=== PATIENT | female | born 1985 | race Caucasian/White ===

== ENCOUNTER → 2018-03-25 20:57 | Outpatient (CLI) | payer BC, SELFPAY ==
[2018-03-25 21:21] LABS: Absolute Neutrophil Count 5.5 X10^3/uL (2.0-7.7); Basophil# 0.04 X10^3/uL; Basophil% 0.4 % (0-1); Hematocrit 43.4 % (37-47); Hemoglobin 14.2 g/dl (12.0-15.0); Lymphocyte % 34.4 % (19-41); Mean Corp Hgb Conc 32.7 g/gl (32-36); Mean Corpuscular Hgb 29.3 pg (27.0-32.0); Mean Corpuscular Volume 89.5 fL (81-99); Monocyte# 0.55 X10^3/uL; Monocyte% 5.6 % (0-10); Neutrophil # 5.54 X10^3/uL (2.7-7.7); Neutrophil % 56.2 % (47-70); Platelet Count 245 K/mm3 (150-450); RBC Distribution Width CV 12.8 % (11.6-14.6); RBC Distribution Width SD 41.4 fl (35.1-43.9); Red Blood Count 4.85 M/mm3 (4.2-5.4); White Blood Count 9.9 K/mm3 (4.4-11.0)
[2018-03-25 21:22] LABS: POSITIVE COUNT NO; POSITIVE DIFFERENTIAL NO; POSITIVE MORPHOLOGY NO
[2018-03-25 21:46] LABS: ALB/GLOB Ratio 0.9 RATIO (0.9-2.4); AST(SGOT) 26 U/L (15-37); Alanine Aminotransfer ALT/SGPT 44 U/L (13-56); Albumin, Serum 3.7 g/dL (3.2-5.0); Alkaline Phosphatase 69 U/L (45-117); Anion Gap 9 (5-15); BUN 14 mg/dL (7-18); BUN/Creat Ratio 18.2 RATIO (10-20); Chloride 103 mmol/L (98-107); Cholesterol 206 mg/dL (200); Creatinine, Serum 0.77 mg/dL (0.55-1.02); EST Glomerular Filtration Rate 93 mL/min (>60); Est Glom Filt Rate - Afr Amer 113 mL/min (>60); Glucose 92 mg/dL (74-106); High Density Lipoprotein 44 mg/dL; Protein, Total 7.7 g/dL (6.4-8.2); Sodium Level 140 mmol/L (136-145); Thyroid Stim Hormone (TSH) 6.85 uIU/mL (0.358-3.74); Triglycerides 276 mg/dL; Very Low Density Lipoprotein 55 mg/dL (5-40)
[2018-03-26 09:10] LABS: Vitamin B12 311 pg/mL (211-911)
[2018-03-29 11:18] LABS: EBV Acute VCA IgM < 36.0 U/mL (0.0-35.9); EBV Early Antigen IgG 51.5 U/mL (0.0-8.9); EBV Nuclear Antigen IgG > 600.0 U/mL (0.0-17.9); EBV-VCA IgG > 600.0 U/mL (0.0-17.9); Thyroid Peroxidase AB 23 IU/mL (0-34)
== END ==
PROVIDERS: Visit Provider Nurse Practitioner
DX: B27.90 Infectious mononucleosis, unspecified without complication (principal); I10 Essential (primary) hypertension; E78.00 Pure hypercholesterolemia, unspecified; E03.9 Hypothyroidism, unspecified; R53.83 Other fatigue
CPT/HCPCS: 80053; 80061; 82607; 84439; 84443; 85025; 86376; 86663; 86664; 86665

== ENCOUNTER → 2020-04-26 10:05 | Outpatient (CLI) | payer BC, SELFPAY ==
[2020-04-25 19:38] VITALS: BMI 37.5
[2020-04-26 10:47] LABS: Absolute Lymphocyte Count 3.39 X10^3/uL (0.83-4.51); Absolute Neutrophil Count 11.1 X10^3/uL (2.0-7.7); Basophil# 0.09 X10^3/uL; Basophil% 0.6 % (0-1); Eosinophil# 0.16 X10^3/uL; Hematocrit 45.3 % (37-47); Hemoglobin 14.6 g/dL (12.0-15.0); Lymphocyte # 3.39 X10^3/ul (4.0); Lymphocyte % 21.7 % (19-41); Mean Corp Hgb Conc 32.2 g/dL (32-36); Mean Corpuscular Hgb 28.6 pg (27.0-32.0); Mean Corpuscular Volume 88.6 fL (81-99); Mean Platelet Vol. 10.4 fl (6.2-12.0); Monocyte# 0.82 X10^3/uL; Monocyte% 5.2 % (0-10); NRBC Flagged by Analyzer 0 % (0-5); Neutrophil # 11.09 X10^3/uL (2.7-7.7); Neutrophil % 71.1 % (47-70); Platelet Count 362 K/mm3 (150-450); RBC Distribution Width CV 12.1 % (11.6-14.6); RBC Distribution Width SD 39.4 fl (35.1-43.9); Red Blood Count 5.11 M/mm3 (4.2-5.4); White Blood Count 15.6 K/mm3 (4.4-11.0)
[2020-04-26 11:07] LABS: Thyroid Stim Hormone (TSH) 5.88 uIU/mL (0.358-3.74)
== END ==
PROVIDERS: PCP Nurse Practitioner; Referring Provider Nurse Practitioner; Visit Provider Nurse Practitioner
DX: E03.9 Hypothyroidism, unspecified (principal)
CPT/HCPCS: 84443; 85025

== ENCOUNTER → 2021-04-24 21:19 | Outpatient (CLI) | payer OTHER, SELFPAY ==
[2021-04-24 21:41] LABS: Absolute Lymphocyte Count 4.47 X10^3/uL (0.83-4.51); Absolute Neutrophil Count 7.4 X10^3/uL (2.0-7.7); Basophil# 0.11 X10^3/uL; Basophil% 0.8 % (0-1); Eosinophil# 0.33 X10^3/uL; Eosinophils% 2.5 % (0-5); Lymphocyte # 4.47 X10^3/ul (0.83-4.51); Lymphocyte % 34.3 % (19-41); Mean Corp Hgb Conc 33.3 g/dL (32-36); Mean Corpuscular Hgb 29.5 pg (27.0-32.0); Mean Corpuscular Volume 88.4 fL (81-99); Mean Platelet Vol. 9.7 fl (6.2-12.0); Monocyte# 0.72 X10^3/uL; Monocyte% 5.5 % (0-10); NRBC Flagged by Analyzer 0 % (0-5); Neutrophil # 7.35 X10^3/uL (2.7-7.7); Neutrophil % 56.4 % (47-70); Platelet Count 399 K/mm3 (150-450); RBC Distribution Width CV 12.3 % (11.6-14.6); RBC Distribution Width SD 40.2 fl (35.1-43.9); Red Blood Count 5.09 M/mm3 (4.2-5.4)
[2021-04-24 21:55] LABS: ALB/GLOB Ratio 0.8 RATIO (0.9-2.4); AST(SGOT) 17 U/L (15-37); Alanine Aminotransfer ALT/SGPT 28 U/L (13-56); Albumin, Serum 3.8 g/dL (3.2-5.0); Alkaline Phosphatase 77 U/L (45-117); Anion Gap 6 (5-15); BUN 6 mg/dL (7-18); BUN/Creat Ratio 7.5 RATIO (10-20); Chloride 104 mmol/L (98-107); Cholesterol 169 mg/dL (200); EST Glomerular Filtration Rate 88 mL/min (>60); Est Glom Filt Rate - Afr Amer 106 mL/min (>60); Globulin 4.5 g/dL (2.2-4.2); Glucose 93 mg/dL (74-106); High Density Lipoprotein 49 mg/dL; Potassium 3.7 mmol/L (3.5-5.1); Protein, Total 8.3 g/dL (6.4-8.2); Sodium Level 138 mmol/L (136-145); Thyroid Stim Hormone (TSH) 2.45 uIU/mL (0.358-3.74); Triglycerides 209 mg/dL; Very Low Density Lipoprotein 42 mg/dL (5-40)
== END ==
PROVIDERS: PCP Nurse Practitioner; Visit Provider Nurse Practitioner
DX: Z00.00 Encounter for general adult medical examination without abnormal findings (principal)
CPT/HCPCS: 80053; 80061; 84443; 85025

== ENCOUNTER → 2022-04-22 | Outpatient (CLI) | payer OTHER, SELFPAY ==
[2022-04-22 22:30] LABS: Absolute Lymphocyte Count 3.97 X10^3/uL (0.83-4.51); Absolute Neutrophil Count 6.5 X10^3/uL (2.0-7.7); Basophil# 0.06 X10^3/uL; Basophil% 0.5 % (0-1); Eosinophil# 0.47 X10^3/uL; Hematocrit 41.9 % (37-47); Lymphocyte # 3.97 X10^3/ul (0.83-4.51); Lymphocyte % 33.5 % (19-41); Mean Corp Hgb Conc 33.4 g/dL (32-36); Mean Corpuscular Hgb 29.6 pg (27.0-32.0); Mean Corpuscular Volume 88.6 fL (81-99); Mean Platelet Vol. 10.1 fl (6.2-12.0); Monocyte# 0.79 X10^3/uL; Monocyte% 6.7 % (0-10); NRBC Flagged by Analyzer 0 % (0-5); Neutrophil # 6.53 X10^3/uL (2.7-7.7); Platelet Count 350 K/mm3 (150-450); RBC Distribution Width CV 12.3 % (11.6-14.6); RBC Distribution Width SD 40.2 fl (35.1-43.9); Red Blood Count 4.73 M/mm3 (4.2-5.4); White Blood Count 11.9 K/mm3 (4.4-11.0)
[2022-04-22 23:00] LABS: ALB/GLOB Ratio 0.8 RATIO (0.9-2.4); AST(SGOT) 14 U/L (15-37); Alanine Aminotransfer ALT/SGPT 24 U/L (13-56); Albumin, Serum 3.3 g/dL (3.2-5.0); Alkaline Phosphatase 69 U/L (45-117); Anion Gap 7 (5-15); BUN 15 mg/dL (7-18); BUN/Creat Ratio 19.1 RATIO (10-20); Calcium,Total 8.7 mg/dL (8.5-10.1); Chloride 108 mmol/L (98-107); Cholesterol 161 mg/dL (200); Creatinine, Serum 0.79 mg/dL (0.55-1.02); EST Glomerular Filtration Rate 89 mL/min (>60); Est Glom Filt Rate - Afr Amer 107 mL/min (>60); Globulin 4.1 g/dL (2.2-4.2); Glucose 95 mg/dL (74-106); High Density Lipoprotein 42 mg/dL; Potassium 4.1 mmol/L (3.5-5.1); Protein, Total 7.4 g/dL (6.4-8.2); Sodium Level 141 mmol/L (136-145); Triglycerides 175 mg/dL; Very Low Density Lipoprotein 35 mg/dL (5-40)
[2022-04-25 13:57] LABS: Vitamin D 1,25-Dihydroxy 33.1 pg/mL (24.8-81.5)
== END | disposition home or self-care (01) ==
PROVIDERS: PCP Nurse Practitioner; Visit Provider Nurse Practitioner
DX: Z00.00 Encounter for general adult medical examination without abnormal findings (principal)
CPT/HCPCS: 80053; 80061; 82652; 84443; 85025

== ENCOUNTER → 2022-09-09 | Outpatient (CLI) | payer OTHER, SELFPAY ==
[2022-09-09 22:46] LABS: AST(SGOT) 21 U/L (15-37); Alanine Aminotransfer ALT/SGPT 40 U/L (13-56); Alkaline Phosphatase 81 U/L (45-117); Anion Gap 8 (5-15); BUN 10 mg/dL (7-18); Calcium,Total 9.6 mg/dL (8.5-10.1); Chloride 105 mmol/L (98-107); Creatinine, Serum 0.91 mg/dL (0.55-1.02); EST Glomerular Filtration Rate 75 mL/min (>60); Est Glom Filt Rate - Afr Amer 90 mL/min (>60); Globulin 4.2 g/dL (2.2-4.2); Glucose 94 mg/dL (74-106); Protein, Total 8.2 g/dL (6.4-8.2); Sodium Level 141 mmol/L (136-145); Thyroid Stim Hormone (TSH) 4.76 uIU/mL (0.358-3.74)
[2022-09-09 23:11] LABS: Absolute Lymphocyte Count 3.26 X10^3/uL (0.83-4.51); Absolute Neutrophil Count 7.8 X10^3/uL (2.0-7.7); Basophil# 0.05 X10^3/uL; Basophil% 0.4 % (0-1); Eosinophil# 0.39 X10^3/uL; Eosinophils% 3.2 % (0-5); Hematocrit 45.9 % (37-47); Hemoglobin 14.8 g/dL (12.0-15.0); Lymphocyte # 3.26 X10^3/ul (0.83-4.51); Lymphocyte % 26.4 % (19-41); Mean Corp Hgb Conc 32.2 g/dL (32-36); Mean Corpuscular Hgb 28.2 pg (27.0-32.0); Mean Corpuscular Volume 87.4 fL (81-99); Mean Platelet Vol. 10.2 fl (6.2-12.0); Monocyte# 0.76 X10^3/uL; Monocyte% 6.2 % (0-10); NRBC Flagged by Analyzer 0 % (0-5); Neutrophil # 7.77 X10^3/uL (2.7-7.7); Neutrophil % 62.9 % (47-70); Platelet Count 343 K/mm3 (150-450); RBC Distribution Width CV 12.7 % (11.6-14.6); RBC Distribution Width SD 40.5 fl (35.1-43.9); Red Blood Count 5.25 M/mm3 (4.2-5.4); White Blood Count 12.3 K/mm3 (4.4-11.0)
== END | disposition home or self-care (01) ==
PROVIDERS: PCP Nurse Practitioner; Visit Provider Nurse Practitioner
DX: E03.9 Hypothyroidism, unspecified (principal)
CPT/HCPCS: 80053; 84443; 85025

== ENCOUNTER → 2025-01-16 | Outpatient (CLI) | payer OTHER, SELFPAY ==
--- OUTSIDE RECORDS SUMMARY | 2025-01-17 02:27 | XMS RPT_ITS | CCD ---
Author Organization [facility] Care Team Providers Care Flavoring Maker Name Role Phone Kalani Pace Primary Care Provider Kwan CLOTH FINISHER, Nacho Attending Unavailable Kwan CLOTH FINISHER, Nacho Primary Care Unavailable Kwan CLOTH FINISHER, Nacho Attending Unavailable Kawn CLOTH FINISHER, Nacho Primary Care Unavailable Nacho Cameron Primary Care Provider RAZA MONIQUE Attending Unavailable NACHO CAMERON Primary Care Unavailable Nacho Cameron Primary Care Provider Allergies Allergy Classification Reported Allergen(s) Allergy Type Date of Onset Reaction(s) Facility Sulfonamides (antibiotic) (1 source) Sulfonamides (Antibiotic) Drug Allergy 2 GI Upset, Vomiting [facility] (2 sources) Sulfonamides (Antibiotic) Allergy to substance 8 [facility] (1 source) Sulfonamides (Antibiotic) Drug allergy (disorder) 8 [facility] (4 sources) Sulfonamides (Antibiotic) Propensity to adverse reactions 8 Nausea And Vomiting [facility] Medications Current Medications Medication Drug Class(es) Dates Sig (Normalized) Sig (Original) ciprofloxacin 500 mg oral tablet (2 sources) Quinolone Antimicrobial Start: 09-09-2022 take 500 mg by mouth twice daily Ciprofloxacin Hcl Active 500 MG PO TWICE A DAY September 09, 2022 12:00am Start: 06-27-2022 End: 07-01-2022 take 500 mg by mouth twice daily Ciprofloxacin Hcl Discontinued 500 MG PO TWICE A DAY June 27, 2022 12:00am July 01, 2022 11:52am FLUoxetine 40 mg oral capsule (3 sources) Serotonin Reuptake Inhibitor Start: 04-22-2022 End: 06-27-2022 take 40 mg by mouth once daily Fluoxetine Active 40 MG PO DAILY June 27, 2022 4:42pm hydrOXYzine hydrochloride 10 mg oral tablet (1 source) Antihistamine Start: 10-30-2023 take 1 tablet by mouth three times daily as needed for anxiety hydrOXYzine HCl (Atarax) 10 MG tablet Take 10 mg by mouth 3 times daily as needed for anxiety. 0 10/30/2023 Active levonorgestrel 0.213697 mg/hr intrauterine system (1 source) Progestin, Progestin-containin g Intrauterine Device levonorgestrel (Mirena, 52 MG,) 20 MCG/DAY IUD 1 each by IntraUTERine route Once. 0 Active levothyroxine sodium 0.2 mg oral tablet (17 sources) l-Thyroxine Start: 04-18-2023 take 1 tablet by mouth once daily levothyroxine (Synthroid, Levoxyl) 200 MCG tablet Take 200 mcg by mouth daily. 0 04/18/2023 Active Start: 09-10-2022 take 200 ug by mouth once daily Levothyroxine Active 200 MCG PO DAILY September 10, 2022 12:00am Start: 04-25-2022 End: 09-10-2022 take 175 ug by mouth once daily Levothyroxine Discontinued 175 MCG PO DAILY June 27, 2022 4:42pm September 10, 2022 8:07am Start: 03-02-2019 End: 06-27-2022 take 150 ug by mouth once daily Levothyroxine Discontinued 150 MCG PO DAILY April 25, 2021 7:22pm June 27, 2022 4:41pm Start: 03-30-2018 End: 05-29-2018 Levothyroxine Discontinued 1 75 MCG PO DAILY March 30, 2018 1:48pm May 28, 2018 11:11pm Take on empty stomach, one half hour prior to food or supplements Start: 03-23-2018 End: 03-30-2018 take 150 ug by mouth once daily Levothyroxine Discontinued 150 MCG PO DAILY March 22, 2018 11:00pm March 30, 2018 1:47pm lisdexamfetamine dimesylate 20 mg oral capsule (3 sources) Central Nervous System Stimulant Start: 01-17-2021 End: 02-01-2021 take 1 capsule by mouth once daily at breakfast lisdexamfetamine (VYVANSE) 20 mg capsule Indications: ADHD (attention deficit hyperactivity disorder), inattentive type Take 1 capsule by mouth daily with breakfast for 15 days. 15 capsule 0 01/17/2021 02/01/2021 Active Start: 03-02-2019 End: 04-22-2022 take 1 capsule by mouth once daily Lisdexamfetamine (Vyvanse) 70 mg capsule Discontinued 70 MG PO DAILY March 01, 2019 11:00pm April 22, 2022 3:00pm Comment on above: Take 1 capsule by mo [facility] daily with breakfast for 15 days. pantoprazole 40 mg delayed release oral tablet (4 sources) Proton Pump Inhibitor Start: take 40 mg by mouth once daily Pantoprazole Active 40 MG PO DAILY September 09, 2022 12:00am Start: 08-31-2022 End: 08-31-2022 pantoprazole (ProtoNix) inje ction 40 mg Completed/Discontinued Medications Medication Drug Class(es) Dates Sig (Normalized) Sig (Original) amoxicillin 875 mg / clavulanate 125 mg oral tablet (3 sources) Penicillin-class Antibacterial Start: 07-01-2022 End: 09-09-2022 take 1 tablet by mouth twice daily Amoxicillin-Pot Clavulanate Discontinued 1 TABLET PO TWICE A DAY July 01, 2022 12:00am September 09, 2022 6:05pm Start: 02-13-2021 End: 04-22-2022 take 1 tablet by mouth twice daily Amoxicillin-Pot Clavulanate Discontinued 1 TABLET PO TWICE A DAY February 12, 2021 11:00pm April 22, 2022 3:00pm 24 hr amphetamine 15.7 mg extended release oral tablet (2 sources) Central Nervous System Stimulant Start: 04-22-2022 End: 06-27-2022 take 1 tablet by mouth every twenty-four hours Amphetamine (Adzenys Xr-Odt) 15.7 mg tablet,disinteg ER biphase 24h Discontinued MG PO April 21, 2022 11:00pm June 27, 2022 4:41pm azithromycin 250 mg oral tablet (2 sources) Macrolide Antimicrobial Start: 10-22-2020 End: 10-27-2020 Azithromycin Discontinued 250 MG PO daily 6 October 21, 2020 11:00pm October 26, 2020 11:03pm 2 po qd for 1 day then 1 po qd for 4 days with food or after eating cephalexin 500 mg oral capsule (2 sources) Cephalosporin Antibacterial Start: 04-26-2020 End: 05-06-2020 take 500 mg by mouth twice daily Cephalexin Discontinued 500 MG PO TWICE A DAY 15 05April 25, 2020 11:00pm May 05, 2020 11:03pm cholecalciferol 0.05 mg oral capsule (1 source) Vitamin D Cholecalciferol, Vitamin D3, (VITAMIN D-3) 2,000 unit cap Take by mouth once daily. 0 Active Comment on above: Take by mouth once d aily. citalopram 40 mg oral tablet (2 sources) Serotonin Reuptake Inhibitor Start: 03-23-2018 End: 03-25-2018 take 40 mg by mouth once daily Citalopram Discontinued 40 MG PO DAILY March 22, 2018 11:00pm March 25, 2018 9:47am 24 hr desvenlafaxine succinate 50 mg extended release oral tablet (1 source) Serotonin and Norepinephrine Reuptake Inhibitor Start: 10-12-2023 End: 11-11-2023 take 1 tablet by mouth every twenty-four hours desvenlafaxine (Pristiq) 50 MG 24 hr tablet Take 50 mg by mouth. 0 10/12/2023 11/11/2023 Discontinued () fluconazole 150 mg oral tablet (2 sources) Azole Antifungal Start: 03-23-2018 End: 03-25-2018 Fluconazole Discontinued 150 MG PO Q3D March 22, 2018 11:00pm March 25, 2018 9:47am 1 ml haloperidol 5 mg/ml injection (2 sources) Typical Antipsychotic Start: 08-31-2022 End: 08-31-2022 haloperidol lactate (Haldol) injection 2.5 mg hydroCHLOROthiazide 25 mg oral tablet (2 sources) Thiazide Diuretic Start: 03-23-2018 End: 03-25-2018 take 25 mg by mouth once daily Hydrochlorothiazide Discontinued 25 MG PO DAILY March 22, 2018 11:00pm March 25, 2018 9:48am methylPREDNISolone (1 source) Corticosteroid METHYLPREDNISOLO NE ACETATE (DEPO-MEDROL INJECTION) by INJECTION(UNSPECIFIED PARENTERAL ROUTES) route. Every three months 0 Active Comment on above: by INJECTION(UNSPECI FIED PARENTERAL ROUTES) route. Every three months metroNIDAZOLE 0.0075 mg/mg vaginal gel (2 sources) Nitroimidazole Antimicrobial Start: 10-04-2020 End: 06-27-2022 Metronidazole Discontinued 1 APPFUL VAGINAL DAILY 70 October 04, 2020 12:00am June 27, 2022 4:41pm Multivitamin capsule (1 source) take 1 capsule by mouth once daily Multivitamin capsule Take 1 capsule by mouth once daily. 0 Active Comment on above: Take 1 capsule by mo ut once daily. 2 ml ondansetron 2 mg/ml injection (5 sources) Serotonin-3 Receptor Antagonist Start: 08-31-2022 End: 08-31-2022 ondansetron (Zofran) injection 4 mg Start: 08-31-2022 End: 09-07-2022 take 1 tablet by mouth every eight hours as needed for nausea and vomiting ondansetron ODT (Zofran-ODT) 4 MG disintegrating tablet Take 1 tablet (4 mg) by mouth every 8 hours as needed for nausea or vomiting for up to 7 days. 20 tablet 0 08/31/2022 09/07/2022 Active Start: 07-02-2022 take 8 mg by mouth e very eight hours Ondansetron Active 8 MG PO Q8H July 02, 2022 12:00am PNV NO.28/FERROUS FUMARATE/FA (PNV #28-IRON FUMARATE-FOLIC AC ORAL) (1 source) PNV NO.28/FERROU S FUMARATE/FA (PNV #28-IRON FUMARATE-FOLIC AC ORAL) Take by mouth. 0 Active Comment on above: Take by mouth. predniSONE 10 mg oral tablet (8 sources) Start: 02-13-2021 End: 02-17-2021 Prednisone Discontinued 20 MG PO TWICE A DAY 23 11February 12, 2021 11:00pm February 16, 2021 11:01pm 2 po bid 4D,1 po bid for 4 D, 1 po qd for 4 D 1/2 po qd for 2 days Start: 10-22-2020 End: 11-05-2020 take 40 mg by mouth once daily Prednisone Discontinued 40 MG PO DAILY 15 05October 26, 2020 5:31pm November 04, 2020 11:03pm Start: 04-25-2020 End: 10-04-2020 take 40 mg by mouth once daily Prednisone Discontinued 40 MG PO DAILY April 24, 2020 11:00pm October 04, 2020 5:02pm 50 ml sodium chloride 9 mg/ml injection (2 sources) Start: 08-31-2022 End: 08-31-2022 sodium chloride 0.9 % bolus 1,000 mL spironolactone 50 mg oral tablet (1 source) Aldosterone Antagonist take 1 tablet by mouth twice daily spironolactone (ALDACTONE) 50 mg tablet Take 50 mg by mouth twice daily. 0 Active Comment on above: Take 50 mg by mouth twice daily. topiramate 50 mg oral tablet (1 source) take 1 tablet by mouth twice daily Topiramate (TOPAMAX) 50 mg tablet Take 50 mg by mouth twice daily. 0 Active Comment on above: Take 50 mg by mouth twice daily. 24 hr venlafaxine 75 mg extended release oral capsule (20 sources) Serotonin and Norepinephrine Reuptake Inhibitor Start: 12-28-2020 venlafaxine ER (EFFEXOR XR) 75 mg 24 hr capsule Start: 04-14-2019 End: 04-26-2020 take 225 mg by mouth once daily Venlafaxine Discontinu ed 225 MG PO DAILY 180 30 April 25, 2020 6:45pm April 26, 2020 11:08am Start: 03-07-2019 End: 04-22-2022 take 225 mg by mouth once daily Venlafaxine Discontinu ed 225 MG PO DAILY 270 90 April 14, 2019 4:45pm April 25, 2020 6:46pm Start: 03-02-2019 End: 03-07-2019 take 225 mg by mouth once daily Venlafaxine Discontinu ed 225 MG PO DAILY 90 March 02, 2019 6:07pm March 07, 2019 1:53pm Start: 03-25-2018 End: 03-02-2019 take 150 mg by mouth once daily Venlafaxine Discontinu ed 150 MG PO DAILY March 25, 2018 9:48am March 02, 2019 6:07pm Start: 03-23-2018 End: 03-25-2018 take 225 mg by mouth once daily Venlafaxine Discontinu ed 225 MG PO DAILY March 22, 2018 11:00pm March 25, 2018 9:48am take 1 tablet by adina th once daily venlafaxine 37.5 mg tablet Take 37.5 mg by mouth once daily. 0 Active Comment on above: Take 37.5 mg by mout h once daily. vitamin b6 100 mg oral tablet (1 source) take 1 tablet by mouth once daily pyridoxine (VITAMIN B-6) 100 mg tablet Take 100 mg by mouth once daily. 0 Active Comment on above: Take 100 mg by mouth once daily. Problems Active Problems Problem Classification Problem Date Documented Da te Episodic/Chronic Anxiety disorders (4 sources) Anxiety; Translations: [Anxiety disorder, unspecified] Onset: 5 05-10-2022 Chronic Attention-deficit, conduct, and disruptive behavior disorders (2 sources) Attention deficit hyperactivity disorder, predominantly inattentive type; Translations: [Attention-deficit hyperactivity disorder, predominantly inattentive type] Onset: Chronic Bacterial infection; unspecified site (2 sources) Beta lactam resistant bacterial infection; Translations: [Streptococcal infection, unspecified site] 10-24-2020 Episodic Esophageal disorders (1 source) Gastroesophageal reflux disease; Translations: [Gastro-esophageal reflux disease without esophagitis] 09-09-2022 Chronic Inflammatory diseases of female pelvic organs (2 sources) Bacterial vaginosis; Translations: [Acute vaginitis] 10-04-2020 Episodic Malaise and fatigue (1 source) Fatigue; Translations: [Chronic fatigue, unspecified] Chronic Mood disorders (6 sources) Depressive disorder; Translations: [Depression] Onset: 5 03-02-2019 Chronic Other endocrine disorders (1 source) Hyperprolactinemia; Translations: [Hyperprolactinemia] Onset: 2 06-09-2012 Chronic Other gastrointestinal disorders (2 sources) Dysphagia; Translations: [Dysphagia, unspecified] 10-26-2020 Episodic Other nutritional; endocrine; and metabolic disorders (2 sources) Obesity caused by energy imbalance; Translations: [Other obesity due to excess calories] Onset: 6 05-10-2022 Chronic Other nutritional; endocrine; and metabolic disorders (4 sources) Body mass index 30+ - obesity; Translations: [Body mass index (BMI) 36.0-36.9, adult] Onset: 9 05-10-2022 Chronic Other nutritional; endocrine; and metabolic disorders (2 sources) Simple obesity ; Translations: [Other obesity due to excess calories] Onset: 6 05-10-2022 Chronic Other screening for suspected conditions (not mental disorders or infectious disease) (4 sources) Thyroid function tests abnormal; Translations: [Abnormal results of thyroid function studies] Onset: 3 08-25-2012 Episodic Other skin disorders (2 sources) Sebaceous cyst of skin; Translations: [Sebaceous cyst] 10-04-2020 Episodic Other upper respiratory disease (2 sources) Seasonal allergy; Translations: [Other seasonal allergic rhinitis] 04-22-2022 Chronic Other upper respiratory infections (4 sources) Streptococcal sore throat; Translations: [Streptococcal pharyngitis] 06-27-2022 Episodic Poisoning by nonmedicinal substances (2 sources) Bee sting; Translations: [Toxic effect of venom of bees, accidental (unintentional), initial encounter] 04-25-2020 Episodic Skin and subcutaneous tissue infections (4 sources) Erysipelas; Translations: [Erysipelas] 02-13-2021 Episodic Superficial injury; contusion (2 sources) Nonvenomous insect bite of face with infection; Translations: [Insect bite (nonvenomous) of other part of head, initial encounter] 02-14-2021 Episodic Thyroid disorders (9 sources) Goiter; Translations: [Iodine-deficiency related diffuse (endemic) goiter] Onset: 6 03-02-2019 Chronic Past or Other Problems Problem Classification Problem Date Documented Da te Episodic/Chronic Malaise and fatigue (1 source) Fatigue; Translations: [Other fatigue] Onset: 02-20-2012 02-20-2012 Episodic Nausea and vomiting (2 sources) Nausea and vomiting; Translations: [Nausea with vomiting, unspecified] Episodic Other gastrointestinal disorders (2 sources) Diarrhea; Translations: [Diarrhea, unspecified] Episodic Other skin disorders (1 source) Telogen effluvium; Translations: [Telogen effluvium] Onset: 02-20-2012 02-20-2012 Episodic Unclassified (2 sources) LEEP CERVIX 02-24-2022 Unclassified (2 sources) mirena removed 02-24-2022 Results Test Name Value Interpretation Reference Range Facility Office Visiton 12-30-2023 Follow-up visit [id number] Beth Heard 1985 F Date Provider Department Center 12/30/2023 RAZA CASH [facility] Family History Problem Relation Age of Onset Thyroid disease Paternal Grandfather Comments: hypothyroid Diabetes Paternal Grandfather Breast cancer Paternal Grandmother 70 Thyroid disease Maternal Grandmother Comments: Parathyroid Alcohol abuse Maternal Grandfather Liver disease Maternal Grandfather Other Father Comments: MVA 31 years old Substance Abuse Mother Comments: alcohol No Known Problems Brother No Known Problems Brother Depression Sister Breast cancer Paternal Great-Grandmother 68 Ovarian cancer Neg Hx Cervical cancer Neg Hx Family Status - Relation Status Age at Paternal Grandfather Alive Paternal Grandmother Alive Maternal Grandmother Alive Maternal Grandfather Father Mother Alive Brother Alive Brother Alive Sister Alive Paternal Great-Grandmother Alive Neg Hx Level of Service:[id number] [place] INITIAL PREVENTIVE MEDICINE NEW PT AGE 18-39YRS Reason for Visit and Comments: Annual Exam [83] - Well woman- replace Mirena Last pap-5 years ago, +HPV, cryotherapy [facility] Progress Noteon 12-30-2023 Progress Note Leslie Heard 12/30/[birth year]23 38 y.o. Primary Care Physician: NACHO CAMERON Chief Complaint Patient presents with Annual Exam Well woman- replace Mirena Last pap-5 years ago, +HPV, cryotherapy HPI : Leslie Heard is a 38 y.o. female here for annual exam __ Gynecologic History: Patient's last menstrual period was 12/28/2023. Pt without complaints. Had mirena placed 5 years ago. Light periods on mirena. OB History Para Term AB Living 0 0 0 0 0 0 SAB IAB Ectopic Multiple Live Births 0 0 0 0 0 Past Medical History: Diagnosis Date Anxiety BMI 36.0-36.9,adult 08/09/2018 Depression EBV infection 2018 Headache HPV (human papilloma virus) anogenital infection Hypothyroidism Past Surgical History: Procedure Laterality Date CERVIX LESION DESTRUCTION 2006 cryo therapy HYSTEROSCOPY 2017 Lost intrauterine device INTRAUTERINE DEVICE INSERTION Removed 2017 Family History Problem Relation Name Age of Onset Thyroid disease Paternal Grandfather hypothyroid Diabetes Paternal Grandfather Breast cancer Paternal Grandmother 70 Thyroid disease Maternal Grandmother Parathyroid Alcohol abuse Maternal Grandfather Liver disease Maternal Grandfather Other ([id number]) Father MVA 31 years old Substance Abuse Mother alcohol No Known Problems Brother No Known Problems Brother Depression Sister Breast cancer Paternal Great-Grandmother great aunt 68 Ovarian cancer Neg Hx Cervical cancer Neg Hx Social History Socioeconomic History Marital status: Single Spouse name: Not on file Number of children: Not on file Years of education: Not on file Highest education level: Not on file Occupational History Not on file Tobacco Use Smoking status: Never Smokeless tobacco: Never Substance and Sexual Activity Alcohol use: Yes Alcohol/week: 0.0 standard drinks of alcohol Drug use: No Sexual activity: Not on file Other Topics Concern Not on file Social History Narrative Not on file Social Determinants of Health Financial Resource Strain: Not on file Food Insecurity: Not on file Transportation Needs: Not on file Physical Activity: Not on file Stress: Not on file Social Connections: Not on file Intimate Partner Violence: Not on file Housing Stability: Not on file MEDICATIONS: Current Outpatient Medications Medication Sig Dispense Refill hydrOXYzine HCl (Atarax) 10 MG tablet Take 10 mg by mouth 3 times daily as needed for anxiety. levonorgestrel (Mirena, 52 MG,) 20 MCG/DAY IUD 1 each by IntraUTERine route Once. levothyroxine (Synthroid, Levoxyl) 200 MCG tablet Take 200 mcg by mouth daily. pantoprazole (ProtoNix) 40 MG EC tablet Take 40 mg by mouth daily. No current facility-administered medications for this visit. ALLERGIES: Allergies as of 12/30/2023 - Reviewed 12/30/2023 Allergen Reaction Noted Sulfa antibiotics Nausea And Vomiting 03/23/2018 REVIEW OF SYSTEMS: CONSTIUTIONAL: No fever, chills or malaise; No weight change or fatigue CV: No Chest Pain with Exertion, Palpitations, Syncope, Edema, Arrhythmia RESPIRATORY: No SOB, Pneumoniae,Cough, BREAST: No breast abnormalities or lumps GI: No Indigestion, Heartburn, Nausea, vomiting, Diarrhea, Constipation,Bloating or Bowel Changes; No Bloody Stools or melena : No Dysuria, Hematuria or Nocturia. No Urinary Incontinence or Vaginal Discharge,vaginal bleeding, or dysparuenia. NEURO: No CVA, Migraines, Epilepsy, Seizure Hx, or Limb Weakness DERM: No Rash, Itching, Hives, Mole Changes or Cancer PSYCH: No Depression, Homicidal thoughts,suicidal thoughts, or anxiety MUSCULOSKELETAL: No Arthralgia, or Arthritis HEME and LYMPH :No Lymphoma, Von Willebrand's, Hemophillia or Bleeding History PHYSICAL EXAM: Vitals: 12/30/23 1159 BP: 124/86 Weight: 104 kg (230 lb) Height: 1.702 m (5' 7) Body mass index is 36.02 kg/m?. KINESEOLOGIST EXAM: EXTERNAL GENITALIA: normal female structures VAGINA: normal ruggae, no lesions CERVIX: no lesions, normal appearance. ANUS/PERINEUM: no hemorrhoids, masses or warts noted. GENERAL EXAM BREAST: b/l symmetric without masses or tenderness CONSTITUTIONAL: Well developed, well nourished, well groomed. no acute distress NECK: no thyromegaly, supple. CARDIOVASCULAR: normal rate and rhythm, no edema LUNGS: Normal effort, normal lung sounds ABDOMEN:soft, non-tender, non-distended, no hepatospleenomegaly SKIN: intact, dry NEUROLOGICAL: no gross motor or sensory deficits noted. . MUSCULOSKELETAL: normal gait, no cyanosis. PSYCHIATRIC Normal mood and affect, A&O x3. ASSESSMENT/PLAN: Leslie was seen today for annual exam. Diagnoses and all orders for this visit: Well woman exam with routine gynecological exam (Primary) - Pap Smear Cervical cancer screening - Pap Smear Follow up in about 1 year (around 12/29/2024). IUD stings not seen Had imaging (more content not included)... Normal [facility] Progress Note [facility] Bailiff was negra peres to the patient for exam. Patient accepted, medical record specialist in room during exam Normal [facility] Progress Note Normal, no endocervi richa cells, repeat pap 1 year [facility] 36on 11-13-2023 36 Name of Caller: Osmin Heard Contact Reason for Appointment: LM for pt to return call to schedule appt. Pt has Mirena implant that needs removed/replaced. Former Dr Patel pt. Office Name: [facility] Medication Refills need, if any: n/a Medication Name: n/a [facility] 36 Appointment Request From: Leslie Heard With Provider: Other - (see comments) Preferred Date Range: From 11/13/2023 To 11/20/2023 Preferred Times: Any Reason: To address the following health maintenance concerns. Cervical Cancer Screening Comments: Past due for my cervical screening and I believe I am past due to having my control removed. I currently have the Mirina implant. Normal [facility] CBC W/Diff, Automatedon 02-1 Absolute Lymph 3.26 X10 3/uL Normal 0.83-4.51 [facility] Comment on above: Performed By: #### L 500.4050, [id number], L100.0100 #### [facility] [address] [place], [address] Absolute Neut 7.8 X10 3/uL High 2.0-7.7 [facility] Comment on above: Performed By: #### L 500.4050, [id number], L100.0100 #### [facility] [address] [place], [address] Basophils/100 WBC (Bld) 0.4 % Normal 0-1 [facility] Comment on above: Performed By: #### L 500.4050, [id number], L100.0100 #### [facility] [address] [place], [address] Eosinophils/100 WBC (Bld) 3.2 % Normal 0-5 [facility] Comment on above: Performed By: #### L 500.4050, [id number], L100.0100 #### [facility] [address] [place], [address] Erythrocyte distribution width (RBC) [Ratio] 12.7 % Normal 11.6-14.6 [facility] Comment on above: Performed By: #### L 500.4050, [id number], L100.0100 #### [facility] [address] [place], [address] Hematocrit (Bld) [Volume fraction] 45.9 % Normal 37-47 [facility] Comment on above: Performed By: #### L 500.4050, [id number], L100.0100 #### [facility] [address] [place], [address] Hemoglobin (Bld) [Mass/Vol] 14.8 g/dL Normal 12.0-15.0 [facility] Comment on above: Performed By: #### L 500.4050, [id number], L100.0100 #### [facility] [address] [place], [address] IG% 0.900 Normal 0.0-0.9 [facility] Comment on above: Result Comment: IG% - Immature Granulocytes (promyelocytes, myelocytes and metamyelocytes) > 1% indicates that a LEFT SHIFT is Present. Performed By: #### L 500.4050, [id number], L100.0100 #### [facility] [address] [place], [address] Lymphocytes/100 WBC (Bld) 26.4 % Normal 19-41 [facility] Comment on above: Performed By: #### L 500.4050, [id number], L100.0100 #### [facility] [address] [place], [address] MCH (RBC) [Entitic mass] 28.2 pg Normal 27.0-32.0 [facility] Comment on above: Performed By: #### L 500.4050, [id number], L100.0100 #### [facility] [address] [place], [address] MCHC (RBC) [Mass/Vol] 32.2 g/dL Normal 32-36 [facility] Comment on above: Performed By: #### L 500.4050, L501.9520, L100.0100 #### [facility] [address] [place], [address] MCV (RBC) [Entitic vol] 87.4 fL Normal 81-99 [facility] Comment on above: Performed By: #### L 500.4050, L501.9520, L100.0100 #### [facility] [address] [place], [address] Monocytes/100 WBC (Bld) 6.2 % Normal 0-10 [facility] Comment on above: Performed By: #### L 500.4050, L501.9520, L100.0100 #### [facility] [address] [place], [address] Neutrophils/100 WBC (Bld) 62.9 % Normal 47-70 [facility] Comment on above: Performed By: #### L 500.4050, L501.9520, L100.0100 #### [facility] [address] [place], [address] Nucleated RBC (Bld) [#/Vol] 0 10*3/uL Normal 0-5 [facility] Comment on above: Performed By: #### L 500.4050, L501.9520, L100.0100 #### [facility] [address] [place], [address] Platelet mean volume (Bld) [Entitic vol] 10.2 fL Normal 6.2-12.0 [facility] Comment on above: Performed By: #### L 500.4050, L501.9520, L100.0100 #### [facility] [address] [place], [address] Platelets (Bld) [#/Vol] 343 10*3/uL Normal 150-450 [facility] Comment on above: Performed By: #### L 500.4050, L501.9520, L100.0100 #### [facility] [address] [place], [address] RBC (Bld) [#/Vol] 5.25 10*6/uL Normal 4.2-5.4 [facility] Comment on above: Performed By: #### L 500.4050, L501.9520, L100.0100 #### [facility] [address] [place], [address] RDW SD 40.5 fl Normal 35.1-43.9 [facility] Comment on above: Performed By: #### L 500.4050, L501.9520, L100.0100 #### [facility] [address] [place], [address] WBC (Bld) [#/Vol] 12.3 10*3/uL High 4.4-11.0 [facility] Comment on above: Performed By: #### L 500.4050, L501.9520, L100.0100 #### [facility] [address] [place], [address] Comprehensive Metabolic Prof ilon 09-10-2022 Albumin [Mass/Vol] 4.0 g/dL Normal 3.2-5.0 [facility] Comment on above: Performed By: #### L 500.4050, L501.9520, L100.0100 #### [facility] [address] [place], [address] Albumin/Globulin [Mass ratio] 1.0 {ratio} Normal 0.9-2.4 [facility] Comment on above: Performed By: #### L 500.4050, L501.9520, L100.0100 #### [facility] [address] [place], [address] ALK P 81 U/L Normal 45-117 [facility] Comment on above: Performed By: #### L 500.4050, L501.9520, L100.0100 #### [facility] [address] [place], [address] ALT [Catalytic activity/Vol] 40 U/L Normal 13-56 [facility] Comment on above: Performed By: #### L 500.4050, [id number], L100.0100 #### [facility] [address] [place], [address] AST [Catalytic activity/Vol] 21 U/L Normal 15-37 [facility] Comment on above: Performed By: #### L 500.4050, [id number], L100.0100 #### [facility] [address] [place], [address] Bilirubin [Mass/Vol] 0.50 mg/dL Normal 0.20-1.00 [facility] Comment on above: Result Comment: For patients on eltrombopag therapy, use of Dimension Mineral TBIL is not recommended. Performed By: #### L 500.4050, L501.9520, L100.0100 #### [facility] [address] [place], [address] BUN/CRE 11.0 RATIO Normal 10-20 [facility] Comment on above: Performed By: #### L 500.4050, L501.9520, L100.0100 #### [facility] [address] [place], [address] CA,Total 9.6 mg/dL Normal 8.5-10.1 [facility] Comment on above: Performed By: #### L 500.4050, [id number], L100.0100 #### [facility] [address] [place], [address] Chloride [Moles/Vol] 105 mmol/L Normal 98-107 [facility] Comment on above: Performed By: #### L 500.4050, [id number], L100.0100 #### [facility] [address] [place], [address] CO2 [Moles/Vol] 28.0 mmol/L Normal 21.0-32.0 [facility] Comment on above: Performed By: #### L 500.4050, [id number], L100.0100 #### [facility] [address] [place], [address] Creatinine [Mass/Vol] 0.91 mg/dL Normal 0.55-1.02 [facility] Comment on above: Result Comment: The validity of the calculated GFR GFRAA in patients over 70 years has not been determined. Clinical correlation is essential. Performed By: #### L 500.4050, L501.9520, L100.0100 #### [facility] [address] [place], [address] EST GFR - AA 90 mL/min Normal >60 [facility] Comment on above: Result Comment: Afri can Indonesian GFR Calc Performed By: #### L 500.4050, L501.9520, L100.0100 #### [facility] [address] [place], [address] GAP 8 Normal 5-15 [facility] Comment on above: Performed By: #### L 500.4050, L501.9520, L100.0100 #### [facility] [address] [place], [address] GFR/1.73 sq M.predicted among non-blacks MDRD (S/P/Bld) [Vol rate/Area] 75 mL/min/{1.73_m2} Normal >60 [facility] Comment on above: Result Comment: Non- GFR Calc Performed By: #### L 500.4050, L501.9520, L100.0100 #### [facility] [address] [place], [address] Globulin (S) [Mass/Vol] 4.2 g/dL Normal 2.2-4.2 [facility] Comment on above: Performed By: #### L 500.4050, L501.9520, L100.0100 #### [facility] [address] [place], [address] Glucose [Mass/Vol] 94 mg/dL Normal 74-106 [facility] Comment on above: Performed By: #### L 500.4050, L501.9520, L100.0100 #### [facility] [address] [place], [address] Potassium [Moles/Vol] 4.0 mmol/L Normal 3.5-5.1 [facility] Comment on above: Performed By: #### L 500.4050, L501.9520, L100.0100 #### [facility] [address] [place], [address] Sodium [Moles/Vol] 141 mmol/L Normal 136-145 [facility] Comment on above: Performed By: #### L 500.4050, [id number], L100.0100 #### [facility] [address] [place], [address] T PROT 8.2 g/dL Normal 6.4-8.2 [facility] Comment on above: Performed By: #### L 500.4050, [id number], L100.0100 #### [facility] [address] [place], [address] Urea nitrogen [Mass/Vol] 10 mg/dL Normal 7-18 [facility] Comment on above: Performed By: #### L 500.4050, L501.9520, L100.0100 #### [facility] [address] [place], [address] Thyroid Stim Hormone (TSH)on 09-10-2022 TSH 4.76 uIU/mL High 0.358-3.74 [facility] Comment on above: Performed By: #### L 500.4050, L501.9520, L100.0100 #### [facility] [address] [place], [address] Absolute lymphocyte countOrd ered By: Nacho Cameron on 09-09-2022 Lymphocytes Auto (Unsp spec) [#/Vol] 3.26 10*3/uL 0.83-4.51 [facility] Basophil percentageOrdered B y: Nacho Cameron on 09-09-2022 Basophils/100 WBC (Bld) 0.4 % 0-1 [facility] Bilirubin [Mass/Vol] 0.50 mg/dL 0.20-1.00 [facility] Comment on above: For patients on eltr ombopag therapy, use of Dimension Mineral TBIL is not recommended. Chloride [Moles/Vol] 105 mmol/L 98-107 [facility] Eosinophils/100 WBC (Bld) 3.2 % 0-5 [facility] Glucose [Mass/Vol] 94 mg/dL 74-106 [facility] Neutrophils (Bld) [#/Vol] 7.8 10*3/uL 2.0-7.7 [facility] Neutrophils/100 WBC (Bld) 62.9 % 47-70 [facility] Potassium [Moles/Vol] 4.0 mmol/L 3.5-5.1 [facility] Protein [Mass/Vol] 8.2 g/dL 6.4-8.2 [facility] Sodium [Moles/Vol] 141 mmol/L 136-145 [facility] WBC (Bld) [#/Vol] 12.3 10*3/uL 4.4-11.0 [facility] Blood erythrocytes count (nu mber/volume)Ordered By: Nacho Cameron on 09-09-2022 RBC (Bld) [#/Vol] 5.25 10*6/uL 4.2-5.4 [facility] Blood hemoglobin measurement (mass/volume)Ordered By: Nacho Cameron on 09-09-2022 Hemoglobin (Bld) [Mass/Vol] 14.8 g/dL 12.0-15.0 [facility] Blood lymphocytes/100 leukoc ytesOrdered By: Nacho Cameron on 09-09-2022 Lymphocytes/100 WBC (Bld) 26.4 % 19-41 [facility] Blood monocytes/100 leukocyt esOrdered By: Nacho Cameron on 09-09-2022 Monocytes/100 WBC (Bld) 6.2 % 0-10 [facility] Blood platelet mean volumeOr dered By: Nacho Cameron on 09-09-2022 Platelet mean volume (Bld) [Entitic vol] 10.2 fL 6.2-12.0 [facility] Determination of erythrocyte mean corpuscular volume (MCV)Ordered By: Nacho Cameron on 09-09-2022 MCV (RBC) [Entitic vol] 87.4 fL 81-99 [facility] Hematocrit Auto (Bld) [Volum e fraction]Ordered By: Nacho Cameron on 09-09-2022 Hematocrit (Bld) [Volume fraction] 45.9 % 37-47 [facility] - Chemistry and C hemistry - challengeOrdered By: Nacho Cameron on 09-09-2022 ALP [Catalytic activity/Vol] 81 U/L 45-117 [facility] ALT [Catalytic activity/Vol] 40 U/L 13-56 [facility] CO2 [Moles/Vol] 28.0 mmol/L 21.0-32.0 [facility] Globulin (S) [Mass/Vol] 4.2 g/dL 2.2-4.2 [facility] Urea nitrogen/Creatinine [Mass ratio] 11.0 mg/mg 10-20 [facility] - Hematology and Cell countsOrdered By: Nacho Cameron on 09-09-2022 Erythrocyte distribution width (RBC) [Entitic vol] 40.5 fL 35.1-43.9 [facility] Erythrocyte distribution width (RBC) [Ratio] 12.7 % 11.6-14.6 [facility] Immature granulocytes/100 WBC (Bld) 0.900 % 0.0-0.9 [facility] Comment on above: IG% - Immature Granu locytes (promyelocytes, myelocytes and metamyelocytes) > 1% indicates that a LEFT SHIFT is Present. MCH (RBC) [Entitic mass] 28.2 pg 27.0-32.0 [facility] Nucleated RBC/100 WBC (Bld) [Ratio] 0 % 0-5 [facility] - Microbiology an d Antimicrobial susceptibilityon 09-09-2022 S. pyogenes Ag IA Ql (Unsp spec) Negative [facility] MCHC Auto (RBC) [Mass/Vol]Or dered By: Nacho Cameron on 09-09-2022 MCHC (RBC) [Mass/Vol] 32.2 g/dL 32-36 [facility] No Panel InformationOrdered By: Nacho Cameron on 09-09-2022 Estimated GFR (MDRD) Amer 90 mL/min >60 [facility] Comment on above: GFR Calc Estimated GFR (MDRD) Non-Af Amer 75 mL/min >60 [facility] Comment on above: Non- GFR Calc Thyroid Stimulating Hormone (TSH) 4.76 uIU/mL 0.358-3.74 [facility] Platelets bldOrdered By: Jose Cameron on 09-09-2022 Platelets (Bld) [#/Vol] 343 10*3/uL 150-450 [facility] Serum or plasma albumin anamika urement (mass/volume)Ordered By: Nacho Cameron on 09-09-2022 Albumin [Mass/Vol] 4.0 g/dL 3.2-5.0 [facility] Serum or plasma albumin/glob ulin mass ratioOrdered By: Nacho Cameron on 09-09-2022 Albumin/Globulin [Mass ratio] 1.0 {ratio} 0.9-2.4 [facility] Serum or plasma calcium anamika urement (mass/volume)Ordered By: Nacho Cameron on 09-09-2022 Calcium [Mass/Vol] 9.6 mg/dL 8.5-10.1 [facility] Serum or plasma creatinine m easurement (mass/volume)Ordered By: Nacho Cameron on 09-09-2022 Creatinine [Mass/Vol] 0.91 mg/dL 0.55-1.02 [facility] Comment on above: The validity of the calculated GFR & GFRAA in patients over 70 years has not been determined. Clinical correlation is essential. Serum or plasma urea nitroge n measurement (mass/volume)Ordered By: Nacho Cameron on 09-09-2022 Urea nitrogen [Mass/Vol] 10 mg/dL 7-18 [facility] Thin prep Papanicolaou smear with manual screeningOrdered By: Nacho Cameron on 09-09-2022 Thin prep Papanicolaou smear with manual screening 21 U/L 15-37 [facility] Thin prep Papanicolaou smear with manual screening 8 5-15 [facility] Basic metabolic 1998 panelon 08-31-2022 Anion gap [Moles/Vol] 10 mmol/L 3 - 13 mmol/L [facility] Calcium [Mass/Vol] 9.4 mg/dL 8.4 - 10. 4 mg/dL [facility] Chloride [Moles/Vol] 112 mmol/L High 98 - 10 7 mmol/L [facility] CO2 [Moles/Vol] 17 mmol/L Low 22 - 30 mmol/L [facility] Creatinine [Mass/Vol] 0.69 mg/dL 0.52 - 1.04 mg/dL [facility] GFR/1.73 sq M.predicted MDRD (S/P/Bld) [Vol rate/Area] - PINF [facility] Comment on above: Calculation based on the Chronic Kidney Disease Epidemiology Collaboration (CKD-EPI) equation refit without adjustment for race Glucose [Mass/Vol] 173 mg/dL High 70 - 100 mg/dL [facility] Interpretation and review of laboratory results Abnormal [facility] Potassium [Moles/Vol] 3.6 mmol/L 3.5 - 5.1 mmol/L [facility] Sodium [Moles/Vol] 139 mmol/L 135 - 145 mmol/L [facility] Urea nitrogen [Mass/Vol] 14 mg/dL 7 - 17 mg/dL [facility] CBC W Auto Differential pane l (Bld)Ordered By: Paul Stephenson on 08-31-2022 Basophils (Bld) [#/Vol] 0.0 10*3/uL 0.0 - 0.2 10*3/uL [facility] Basophils/100 WBC (Bld) 0.3 % 0.0 - 2.0 % [facility] Eosinophils (Bld) [#/Vol] 0.1 10*3/uL 0.0 - 0.5 10*3/uL [facility] Eosinophils/100 WBC (Bld) 0.7 % Low 1.0 - 6.0 % [facility] Erythrocyte distribution width (RBC) [Ratio] 13.1 % 11.5 - 14.5 % [facility] Hematocrit (Bld) [Volume fraction] 44.3 % 35.0 - 47.0 % [facility] Hemoglobin (Bld) [Mass/Vol] 14.8 g/dL 11.7 - 16.0 g/dL [facility] Interpretation and review of laboratory results Abnormal [facility] Lymphocytes (Bld) [#/Vol] 0.8 10*3/uL Low 1.0 - 4.3 10*3/uL [facility] Lymphocytes/100 WBC (Bld) 4.1 % Low 20.0 - 40.0 % [facility] MCH (RBC) [Entitic mass] 28.6 pg 26.0 - 34.0 pg [facility] MCHC (RBC) [Mass/Vol] 33.5 % 32.0 - 36.0 % [facility] MCV (RBC) [Entitic vol] 85.2 fL 80.0 - 98.0 fL [facility] Monocytes (Bld) [#/Vol] 0.5 10*3/uL 0.0 - 0.8 10*3/uL [facility] Monocytes/100 WBC (Bld) 2.9 % 2.0 - 10.0 % [facility] Neutrophils (Bld) [#/Vol] 17.3 10*3/uL High 1.8 - 7.0 10*3/uL [facility] Neutrophils/100 WBC (Bld) 92.0 % High 40.0 - 80.0 % [facility] Nucleated RBC/100 WBC (Bld) [Ratio] 0.0 % [facility] Platelet mean volume (Bld) [Entitic vol] 8.1 fL 7.4 - 12.4 fL [facility] Platelets (Bld) [#/Vol] 275 10*3/uL 140 - 440 10*3/uL [facility] RBC (Bld) [#/Vol] 5.19 10*6/uL 3.8 - 5.20 10*6/uL [facility] WBC (Bld) [#/Vol] 18.8 10*3/uL High 3.6 - 10.7 10*3/uL [facility] Hepatic function 2000 panelo n 08-31-2022 Albumin [Mass/Vol] 4.6 g/dL 3.5 - 5.0 g/dL [facility] ALP [Catalytic activity/Vol] 85 U/L 38 - 126 U/L [facility] ALT [Catalytic activity/Vol] 22 U/L 0 - 34 U/L [facility] AST [Catalytic activity/Vol] 33 U/L 15 - 46 U/L [facility] Bilirubin [Mass/Vol] 1.0 mg/dL 0.2 - 1 .3 mg/dL [facility] Bilirubin.conjugated [Mass/Vol] 0.0 mg/dL 0.0 - 0.3 mg/dL [facility] Protein [Mass/Vol] 7.9 g/dL 6.3 - 8.2 g/dL [facility] - Chemistry and C hemistry - challengeon 08-31-2022 Troponin I.cardiac [Mass/Vol] ng/mL 0.000 - 0.034 ng/mL [facility] Beta HCG ( test) Ql Negative Negative [facility] Comment on above: Please note: Very di lute urine specimens, as indicated by a low specific gravity, may not contain community health representative levels of hCG. If is still suspected, a first morning urine specimen should be collected 48 hours later and tested. Beta HCG ( test) Ql (U) is the most common reason for HCG in urine, although choriocarcinoma, hydatidiform mole, and certain nontrophoblastic malignancies also result in detectable urinary HCG levels. Sensitivity = 20mIU/mL. [facility] Lipase [Catalytic activity/Vol] 83 U/L 23 - 300 U/L [facility] No Panel Informationon 08-31 [facility] P [place] 35 degrees [facility] IL Interval 160 ms [facility] QRS [place] 61 degrees [facility] QRSD Interval 100 ms [facility] QT Interval 464 ms [facility] QTC Interval 490 ms [facility] T Wave [place] 40 degrees [facility] SINUS RHYTHM Normal [place] No ST or T wave changes BORDERLINE PROLONGED QT INTERVAL No previous ECG available for comparison Electronically Signed On 08-31-2022 20:53:10 EST by Santi Gordillo MD - 08/31/2022 IMPRESSION: SINUS RHYTHM Normal [place] No ST or T wave changes BORDERLINE PROLONGED QT INTERVAL No previous ECG available for comparison Electronically Signed On 08-31-2022 20:53:10 EST by Santi Rojas [facility] Interpretation and review of laboratory results Normal [facility] Troponin I.cardiac [Mass/Vol ]on 08-31-2022 Interpretation and review of laboratory results Normal [facility] Patients with high levels of Biotin oral intake (ie >5 mg/day) may have falsely decreased Troponin levels. [facility] Urinalysis complete panel (U )on 08-31-2022 Bacteria LM.HPF (Urine sed) [#/Area] Moderate Abnormal Negative /HPF [facility] Bilirubin Ql (U) Negative Negative mg/dL [facility] Clarity (U) Clear Clear [facility] Color (U) Yellow Lt. Yellow [facility] Epithelial cells.squamous LM.HPF (Urine sed) [#/Area] 0-2 [facility] h Glucose Ql (U) Normal Normal (<70) mg/dL [facility] Hemoglobin Ql (U) Negative Negative mg/dL [facility] Interpretation and review of laboratory results Abnormal [facility] Ketones (U) [Mass/Vol] mg/dL Abnormal Negat kendall mg/dL [facility] Leukocyte esterase Test strip Ql (U) Negative Negative Unique/uL [facility] Mucus LM.HPF (Urine sed) [#/Area] Moderate Abnormal Negative /LPF [facility] Nitrite Ql (U) Negative Negative [facility] th pH (U) 6.0 [pH] 5.0 - 8.0 pH [facility] Protein (U) [Mass/Vol] 50 mg/dL Abnormal Negative [facility] RBC LM.HPF (Urine sed) [#/Area] 0-2 [facility] Specific gravity (U) [Rel density] 1.034 High 1.005 - 1.030 [facility] Urobilinogen (U) [Mass/Vol] Normal Normal (0-1) mg/dL [facility] WBC LM.HPF (Urine sed) [#/Area] 3-5 [facility] Vital signson 08-31-2022 Heart rate 67 /min bpm [facility] Vitamin D 1,25-Dihydroxyon 0 04-25-2022 VIT D 1,25 DIHY 33.1 pg/mL Normal 24.8-81.5 [facility] Comment on above: Result Comment: Pl ease note reference interval change Performed at: - [address] [id number] Kitchen Manager: Miladys Morales MD, Phone: [phone] Performed By: #### L 3300.0960, L501.9520, L100.0100, L500.4100, L500.4050 #### [facility] [address] [place], [address] CBC W/Diff, Automatedon 03-28 Absolute Lymph 3.97 X10 3/uL Normal 0.83-4.51 [facility] Comment on above: Performed By: #### L 3300.0960, L501.9520, L100.0100, L500.4100, L500.4050 #### [facility] [address] [place], [address] Absolute Neut 6.5 X10 3/uL Normal 2.0-7.7 [facility] Comment on above: Performed By: #### L 3300.0960, L501.9520, L100.0100, L500.4100, L500.4050 #### [facility] [address] [place], [address] Basophils/100 WBC (Bld) 0.5 % Normal 0-1 [facility] Comment on above: Performed By: #### L 3300.0960, L501.9520, L100.0100, L500.4100, L500.4050 #### [facility] [address] [place], [address] Eosinophils/100 WBC (Bld) 4.0 % Normal 0-5 [facility] Comment on above: Performed By: #### L 3300.0960, L501.9520, L100.0100, L500.4100, L500.4050 #### [facility] [address] [place], [address] Erythrocyte distribution width (RBC) [Ratio] 12.3 % Normal 11.6-14.6 [facility] Comment on above: Performed By: #### L 3300.0960, L501.9520, L100.0100, L500.4100, L500.4050 #### [facility] [address] [place], [address] Hematocrit (Bld) [Volume fraction] 41.9 % Normal 37-47 [facility] Comment on above: Performed By: #### L 3300.0960, L501.9520, L100.0100, L500.4100, L500.4050 #### [facility] [address] [place], [address] Hemoglobin (Bld) [Mass/Vol] 14.0 g/dL Normal 12.0-15.0 [facility] Comment on above: Performed By: #### L 3300.0960, L501.9520, L100.0100, L500.4100, L500.4050 #### [facility] [address] [place], [address] IG% 0.300 Normal 0.0-0.9 [facility] Comment on above: Result Comment: IG% - Immature Granulocytes (promyelocytes, myelocytes and metamyelocytes) > 1% indicates that a LEFT SHIFT is Present. Performed By: #### L 3300.0960, L501.9520, L100.0100, L500.4100, L500.4050 #### [facility] [address] [place], [address] Lymphocytes/100 WBC (Bld) 33.5 % Normal 19-41 [facility] Comment on above: Performed By: #### L 3300.0960, L501.9520, L100.0100, L500.4100, L500.4050 #### [facility] [address] [place], [address] MCH (RBC) [Entitic mass] 29.6 pg Normal 27.0-32.0 [facility] Comment on above: Performed By: #### L 3300.0960, L501.9520, L100.0100, L500.4100, L500.4050 #### [facility] [address] [place], [address] MCHC (RBC) [Mass/Vol] 33.4 g/dL Normal 32-36 [facility] Comment on above: Performed By: #### L 3300.0960, L501.9520, L100.0100, L500.4100, L500.4050 #### [facility] [address] [place], [address] MCV (RBC) [Entitic vol] 88.6 fL Normal 81-99 [facility] Comment on above: Performed By: #### L 3300.0960, L501.9520, L100.0100, L500.4100, L500.4050 #### [facility] [address] [place], [address] Monocytes/100 WBC (Bld) 6.7 % Normal 0-10 [facility] Comment on above: Performed By: #### L 3300.0960, L501.9520, L100.0100, L500.4100, L500.4050 #### [facility] [address] [place], [address] Neutrophils/100 WBC (Bld) 55.0 % Normal 47-70 [facility] Comment on above: Performed By: #### L 3300.0960, L501.9520, L100.0100, L500.4100, L500.4050 #### [facility] [address] [place], [address] Nucleated RBC (Bld) [#/Vol] 0 10*3/uL Normal 0-5 [facility] Comment on above: Performed By: #### L 3300.0960, L501.9520, L100.0100, L500.4100, L500.4050 #### [facility] [address] [place], [address] Platelet mean volume (Bld) [Entitic vol] 10.1 fL Normal 6.2-12.0 [facility] Comment on above: Performed By: #### L 3300.0960, L501.9520, L100.0100, L500.4100, L500.4050 #### [facility] [address] [place], [address] Platelets (Bld) [#/Vol] 350 10*3/uL Normal 150-450 [facility] Comment on above: Performed By: #### L [id number], L501.9520, L100.0100, L500.4100, L500.4050 #### [facility] [address] [place], [address] RBC (Bld) [#/Vol] 4.73 10*6/uL Normal 4.2-5.4 [facility] Comment on above: Performed By: #### L 3300.0960, L501.9520, L100.0100, L500.4100, L500.4050 #### [facility] [address] [place], [address] RDW SD 40.2 fl Normal 35.1-43.9 [facility] Comment on above: Performed By: #### L 3300.0960, [id number], L100.0100, L500.4100, L500.4050 #### [facility] [address] [place], [address] WBC (Bld) [#/Vol] 11.9 10*3/uL High 4.4-11.0 [facility] Comment on above: Performed By: #### L 3300.0960, L501.9520, L100.0100, L500.4100, L500.4050 #### [facility] [address] [place], [address] Comprehensive Metabolic Prof paula 04-23-2022 ALK P 69 U/L Normal 45-117 [facility] Comment on above: Performed By: #### L 3300.0960, [id number], L100.0100, L500.4100, L500.4050 #### [facility] [address] [place], [address] AST [Catalytic activity/Vol] 14 U/L Low 15-37 [facility] Comment on above: Performed By: #### L 3300.0960, L501.9520, L100.0100, L500.4100, L500.4050 #### [facility] [address] [place], [address] BUN/CRE 19.1 RATIO Normal 10-20 [facility] Comment on above: Performed By: #### L 3300.0960, L501.9520, L100.0100, L500.4100, L500.4050 #### [facility] [address] [place], [address] CA,Total 8.7 mg/dL Normal 8.5-10.1 [facility] Comment on above: Performed By: #### L 3300.0960, [id number], L100.0100, L500.4100, L500.4050 #### [facility] [address] [place], [address] EST GFR - AA 107 mL/min Normal >60 [facility] Comment on above: Result Comment: Afri can Indonesian GFR Calc Performed By: #### L 3300.0960, L501.9520, L100.0100, L500.4100, L500.4050 #### [facility] [address] [place], [address] GAP 7 Normal 5-15 [facility] Comment on above: Performed By: #### L 3300.0960, L501.9520, L100.0100, L500.4100, L500.4050 #### [facility] [address] [place], [address] GFR/1.73 sq M.predicted among non-blacks MDRD (S/P/Bld) [Vol rate/Area] 89 mL/min/{1.73_m2} Normal >60 [facility] Comment on above: Result Comment: Non- GFR Calc Performed By: #### L 3300.0960, L501.9520, L100.0100, L500.4100, L500.4050 #### [facility] [address] [place], [address] T PROT 7.4 g/dL Normal 6.4-8.2 [facility] Comment on above: Performed By: #### L 3300.0960, L501.9520, L100.0100, L500.4100, L500.4050 #### [facility] [address] [place], [address] Thyroid Stim Hormone (TSH)on 04-23-2022 TSH 5.80 uIU/mL High 0.358-3.74 [facility] Comment on above: Performed By: #### L 3300.0960, [id number], L100.0100, L500.4100, L500.4050 #### [facility] [address] [place], [address] Absolute lymphocyte counton 04-22-2022 Lymphocytes Auto (Unsp spec) [#/Vol] 3.97 10*3/uL 0.83-4.51 [facility] Work Phone: Basophil percentageon 2021 Basophils/100 WBC (Bld) 0.5 % 0-1 [facility] Work Phone: Bilirubin [Mass/Vol] 0.30 mg/dL Normal 0.20-1.00 [facility] Work Phone: Comment on above: For patients on eltr ombopag therapy, use of Dimension Mineral TBIL is not recommended. Result Comment: For patients on eltrombopag therapy, use of Dimension Mineral TBIL is not recommended. Performed By: #### L 3300.0960, L501.9520, L100.0100, L500.4100, L500.4050 #### [facility] [address] [place], [address] Chloride [Moles/Vol] 108 mmol/L High 98-107 [facility] Work Phone: Comment on above: Performed By: #### L 3300.0960, [id number], L100.0100, L500.4100, L500.4050 #### [facility] [address] [place], [address] Cholesterol [Mass/Vol] 161 mg/dL Normal 200 [facility] Work Phone: Comment on above: <200 mg/dL Desirable 200-240 mg/dL Borderline >240 mg/dL High Risk Result Comment: <200 mg/dL Desirable 200-240 mg/dL Borderline >240 mg/dL High Risk Performed By: #### L 3300.0960, L501.9520, L100.0100, L500.4100, L500.4050 #### [facility] [address] [place], [address] Eosinophils/100 WBC (Bld) 4.0 % 0-5 [facility] Work Phone: Glucose [Mass/Vol] 95 mg/dL Normal 74-106 [facility] Work Phone: Comment on above: Performed By: #### L [id number], [id number], L100.0100, L500.4100, L500.4050 #### [facility] [address] [place], [address] Neutrophils (Bld) [#/Vol] 6.5 10*3/uL 2.0-7.7 [facility] Work Phone: Neutrophils/100 WBC (Bld) 55.0 % 47-70 [facility] Work Phone: Potassium [Moles/Vol] 4.1 mmol/L Normal 3.5-5.1 [facility] Work Phone: Comment on above: Performed By: #### L 3300.0960, L501.9520, L100.0100, L500.4100, L500.4050 #### [facility] [address] [place], [address] Protein [Mass/Vol] 7.4 g/dL 6.4-8.2 [facility] Work Phone: Sodium [Moles/Vol] 141 mmol/L Normal 136-145 [facility] Work Phone: Comment on above: Performed By: #### L 3300.0960, [id number], L100.0100, L500.4100, L500.4050 #### [facility] [address] [place], [address] Triglyceride [Mass/Vol] 175 mg/dL Normal [facility] Work Phone: Comment on above: The drugs N-Acetylcy steine and Metamizole may falsely depress this assay.Serum Triglycerides Reference Interval Normal <150 mg/dL Borderline high 150 - 199 mg/dL High 200 - 499 mg/dL Very High > or = 500 mg/dL Result Comment: The drugs N-Acetylcysteine and Metamizole may falsely depress this assay. Serum Triglycerides Reference Interval Normal <150 mg/dL Borderline high 150 - 199 mg/dL High 200 - 499 mg/dL Very High > or = 500 mg/dL Performed By: #### L 3300.0960, L501.9520, L100.0100, L500.4100, L500.4050 #### [facility] [address] [place], [address] WBC (Bld) [#/Vol] 11.9 10*3/uL 4.4-11.0 [facility] Work Phone: Blood erythrocytes count (nu mber/volume)on 04-22-2022 RBC (Bld) [#/Vol] 4.73 10*6/uL 4.2-5.4 [facility] Work Phone: Blood hemoglobin measurement (mass/volume)on 04-22-2022 Hemoglobin (Bld) [Mass/Vol] 14.0 g/dL 12.0-15.0 [facility] Work Phone: Blood lymphocytes/100 leukoc yteson 04-22-2022 Lymphocytes/100 WBC (Bld) 33.5 % 19-41 [facility] Work Phone: Blood monocytes/100 leukocyt eson 04-22-2022 Monocytes/100 WBC (Bld) 6.7 % 0-10 [facility] Work Phone: Blood platelet mean volumeon 04-22-2022 Platelet mean volume (Bld) [Entitic vol] 10.1 fL 6.2-12.0 [facility] Work Phone: [phone] Comprehensive Metabolic Prof ilon 04-22-2022 ALT [Catalytic activity/Vol] 24 U/L Normal 13-56 [facility] Work Phone: Comment on above: Performed By: #### L 3300.0960, L501.9520, L100.0100, L500.4100, L500.4050 #### [facility] [address] [place], [address] CO2 [Moles/Vol] 26.0 mmol/L Normal 21.0-32.0 [facility] Work Phone: [phone] Comment on above: Performed By: #### L 3300.0960, L501.9520, L100.0100, L500.4100, L500.4050 #### [facility] [address] [place], [place], [id number] Globulin (S) [Mass/Vol] 4.1 g/dL Normal 2.2-4.2 [facility] Work Phone: Comment on above: Performed By: #### L 3300.0960, L501.9520, L100.0100, L500.4100, L500.4050 #### [facility] [address] [place] [place], [address] Determination of erythrocyte mean corpuscular volume (MCV)on 04-22-2022 MCV (RBC) [Entitic vol] 88.6 fL 81-99 [facility] Work Phone: [phone] Hematocrit Auto (Bld) [Volum e fraction]on 04-22-2022 Hematocrit (Bld) [Volume fraction] 41.9 % 37-47 [facility] Work Phone: Laboratory - Chemistry and C hemistry - challengeon 04-22-2022 ALP [Catalytic activity/Vol] 69 U/L 45-117 [facility] Work Phone: [phone] Urea nitrogen/Creatinine [Mass ratio] 19.1 mg/mg 10-20 [facility] Work Phone: [phone] Laboratory - Hematology and Cell countson 04-22-2022 Erythrocyte distribution width (RBC) [Entitic vol] 40.2 fL 35.1-43.9 [facility] Work Phone: [phone] Erythrocyte distribution width (RBC) [Ratio] 12.3 % 11.6-14.6 [facility] Work Phone: [phone] Immature granulocytes/100 WBC (Bld) 0.300 % 0.0-0.9 [facility] Work Phone: [phone] Comment on above: IG% - Immature Granu locytes (promyelocytes, myelocytes and metamyelocytes) > 1% indicates that a LEFT SHIFT is Present. MCH (RBC) [Entitic mass] 29.6 pg 27.0-32.0 [facility] Work Phone: Nucleated RBC/100 WBC (Bld) [Ratio] 0 % 0-5 [facility] Work Phone: MCHC Auto (RBC) [Mass/Vol]on 04-22-2022 MCHC (RBC) [Mass/Vol] 33.4 g/dL 32-36 [facility] Work Phone: No Panel Informationon 04-22 Estimated GFR (MDRD) Amer 107 mL/min >60 [facility] Work Phone: Comment on above: GFR Calc Estimated GFR (MDRD) Non-Af Amer 89 mL/min >60 [facility] Work Phone: Comment on above: Non- GFR Calc Thyroid Stimulating Hormone (TSH) 5.80 uIU/mL 0.358-3.74 [facility] Work Phone: Platelets bldon 04-22-2022 Platelets (Bld) [#/Vol] 350 10*3/uL 150-450 [facility] Work Phone: Serum or plasma albumin anamika urement (mass/volume)on 04-22-2022 Albumin [Mass/Vol] 3.3 g/dL Normal 3.2-5.0 [facility] Work Phone: Comment on above: Performed By: #### L 3300.0960, L501.9520, L100.0100, L500.4100, L500.4050 #### [facility] [address] [place], [place], [id number] Serum or plasma albumin/glob ulin mass ratioon 04-22-2022 Albumin/Globulin [Mass ratio] 0.8 {ratio} Low 0.9-2.4 [facility] Work Phone: Comment on above: Performed By: #### L 3300.0960, L501.9520, L100.0100, L500.4100, L500.4050 #### [facility] [address] [place], [place], [id number] Serum or plasma calcitriol m easurement (mass/volume)on 04-22-2022 1,25-dihydroxyvitamin D3 [Mass/Vol] 33.1 pg/mL 24.8-81.5 [facility] Work Phone: Comment on above: Please note refere nce interval changePerformed at: [facility] [address] [place], [place] [id number] Director: Miladys Morales MD, Phone: [phone] Serum or plasma calcium anamika urement (mass/volume)on 04-22-2022 Calcium [Mass/Vol] 8.7 mg/dL 8.5-10.1 [facility] Work Phone: Serum or plasma cholesterol in HDL measurement (mass/volume)on 04-22-2022 Cholesterol in HDL [Mass/Vol] 42 mg/dL Normal [facility] Work Phone: Comment on above: The drugs N-Acetylcy steine and Metamizole may falsely depress this assay. Reference Range HDL <40 mg/dL Low HDL Cholesterol HDL >or= 60 mg/dL High HDL Cholesterol Result Comment: The drugs N-Acetylcysteine and Metamizole may falsely depress this assay. Reference Range HDL <40 mg/dL Low HDL Cholesterol HDL >or= 60 mg/dL High HDL Cholesterol Performed By: #### L 3300.0960, L501.9520, L100.0100, L500.4100, L500.4050 #### [facility] [address] [place], [place], [id number] Serum or plasma cholesterol in VLDL measurement (mass/volume)on 04-22-2022 Cholesterol in VLDL [Mass/Vol] 35 mg/dL Normal 5-40 [facility] Work Phone: Comment on above: Performed By: #### L 3300.0960, L501.9520, L100.0100, L500.4100, L500.4050 #### [facility] [address] [place], [place], [id number] Serum or plasma creatinine m easurement (mass/volume)on 04-22-2022 Creatinine [Mass/Vol] 0.79 mg/dL Normal 0.55-1.02 [facility] Work Phone: Comment on above: The validity of the calculated GFR & GFRAA in patients over 70 years has not been determined. Clinical correlation is essential. Result Comment: The validity of the calculated GFR GFRAA in patients over 70 years has not been determined. Clinical correlation is essential. Performed By: #### L 3300.0960, L501.9520, L100.0100, L500.4100, L500.4050 #### [facility] [address] [place], [address] Serum or plasma low density lipoprotein (LDL) cholesterol measurement (mass/volume)on 04-22-2022 Cholesterol in LDL [Mass/Vol] 84 mg/dL Normal 0-130 [facility] Work Phone: Comment on above: Performed By: #### L 3300.0960, L501.9520, L100.0100, L500.4100, L500.4050 #### [facility] [address] [place], [place], [id number] Serum or plasma urea nitroge n measurement (mass/volume)on 04-22-2022 Urea nitrogen [Mass/Vol] 15 mg/dL Normal 7-18 [facility] Work Phone: Comment on above: Performed By: #### L 3300.0960, L501.9520, L100.0100, L500.4100, L500.4050 #### [facility] [address] [place], [place], [id number] Thin prep Papanicolaou smear with manual screeningon 04-22-2022 Thin prep Papanicolaou smear with manual screening 14 U/L 15-37 [facility] Work Phone: Thin prep Papanicolaou smear with manual screening 7 5-15 [facility] Work Phone: Vital Signs Date Time Vital Sign Value Performing Clinician Lisa glover 12-30-2023 11:59-0400 Body height 170.2 cm Raza Monique MD Work Phone: [facility] 12-30-2023 11:59-0400 Body mass index (BMI) [Ratio] 36.02 kg/m2 Raza Monique MD Work Phone: [facility] 12-30-2023 11:59-0400 Body weight 104.33 kg Raza Monique MD Work Phone: [facility] 12-30-2023 11:59-0400 Diastolic blood pressure 86 mm[Hg] Raza Monique MD Work Phone: [facility] 12-30-2023 11:59-0400 Systolic blood pressure 124 mm[Hg] Raza Monique MD Work Phone: [facility] 09-09-2022 22:44-0500 Body height 168.4 cm [facility] 09-09-2022 22:44-0500 Body mass index (BMI) [Ratio] 38 kg/m2 [facility] 09-09-2022 22:44-0500 Body temperature 97.5 [degF] [facility] 09-09-2022 22:44-0500 Body weight 107.95 kg [facility] 09-09-2022 22:44-0500 Diastolic blood pressure 70 mm[Hg] [facility] 09-09-2022 22:44-0500 Heart rate 73 /min [facility] 09-09-2022 22:44-0500 Respiratory rate 18 /min [facility] 09-09-2022 22:44-0500 SaO2% (BldA) [Mass fraction] 98 % [facility] 09-09-2022 22:44-0500 Systolic blood pressure 120 mm[Hg] [facility] 08-31-2022 23:24-0500 Diastolic blood pressure 78 mm[Hg] Santi Rojas MD Work Phone: [facility] 08-31-2022 23:24-0500 Heart rate 80 /min Santi Rojas MD Work Phone: [facility] 08-31-2022 23:24-0500 Respiratory rate 19 /min Santi Rojas MD Work Phone: [facility] 08-31-2022 23:24-0500 SaO2% (BldA) [Mass fraction] 99 % Snati Rojas MD Work Phone: [facility] 08-31-2022 23:24-0500 Systolic blood pressure 142 mm[Hg] Santi Rojas MD Work Phone: [facility] 08-31-2022 22:09-0500 Body temperature 97.7 [degF] Santi Rojas MD Work Phone: [facility] 08-31-2022 20:16-0500 Body height 170.2 cm Santi Rojas MD Work Phone: [facility] 08-31-2022 20:16-0500 Body mass index (BMI) [Ratio] 36.02 kg/m2 Santi Rojas MD Work Phone: [facility] 08-31-2022 20:16-0500 Body weight 104.33 kg Santi Rojas MD Work Phone: [facility] 06-27-2022 16:36-0500 Body mass index (BMI) [Ratio] 39 kg/m2 [facility] 06-27-2022 16:36-0500 Body temperature 98.1 [degF] [facility] 06-27-2022 16:36-0500 Body weight 110.67 kg [facility] 06-27-2022 16:36-0500 Diastolic blood pressure 80 mm[Hg] [facility] 06-27-2022 16:36-0500 Heart rate 98 /min [facility] 06-27-2022 16:36-0500 Respiratory rate 18 /min [facility] 06-27-2022 16:36-0500 SaO2% (BldA) [Mass fraction] 98 % [facility] 06-27-2022 16:36-0500 Systolic blood pressure 140 mm[Hg] [facility] 04-22-2022 15:58-0400 Body height 168.91 cm [facility] Work Phone: 04-22-2022 15:58-0400 Body mass index (BMI) [Ratio] 38.6 kg/m2 [facility] Work Phone: 04-22-2022 15:58-0400 Body temperature 97.5 [degF] [facility] Work Phone: 04-22-2022 15:58-0400 Body weight 110.22 kg [facility] Work Phone: 04-22-2022 15:58-0400 Diastolic blood pressure 78 mm[Hg] [facility] Work Phone: 04-22-2022 15:58-0400 Heart rate 82 /min [facility] Work Phone: 04-22-2022 15:58-0400 Respiratory rate 18 /min [facility] Work Phone: 04-22-2022 15:58-0400 SaO2% (BldA) [Mass fraction] 98 % [facility] Work Phone: 04-22-2022 15:58-0400 Systolic blood pressure 128 mm[Hg] [facility] Work Phone: Encounters Encounter Date Encounter Type Care Provider Facility Start: 12-30-2023 End: 12-30-2023 Initial preventive medicine new pt age 18-39yrs Raza Monique MD Work Phone: [facility] Comment on above: Well woman exam with routine gynecological exam (Primary Dx); Cervical cancer screening Start: 12-30-2023 End: 12-30-2023 Patient encounter procedure Raza Monique MD Work Phone: [facility] Work Phone: Start: 12-30-2023 End: 12-30-2023 ambulatory RAZA MONIQUE [facility] Start: 12-30-2023 End: 12-30-2023 Encounter for gynecological examination (general) (routine) without abnormal findings RAZA ROAY [facility] Start: 11-13-2023 Telephone encounter Raza Monique MD Work Phone: [facility] Comment on above: Appointment; Appoint ment Request Start: 09-09-2022 End: 09-09-2022 Patient encounter procedure [facility], Specimen Start: 09-09-2022 End: 09-09-2022 ambulatory Nacho Cameron [employer] FIN[employer] [facility] Work Phone: Start: 08-31-2022 End: 08-31-2022 Emergency department patient visit Santi Rojas MD Work Phone: [facility] Comment on above: Nausea and vomiting, unspecified vomiting type (Primary Dx); Diarrhea, unspecified type Start: 04-28-2022 Encounter for genera l adult medical examination without abnormal findings Nacho Cameron [employer] [facility] Start: 04-22-2022 End: 04-22-2022 Patient encounter procedure [facility], Specimen Start: 04-22-2022 End: 04-23-2022 ambulatory Nacho Cameron [employer] [facility] Work Phone: Start: 04-24-2021 Patient encounter status [facility] Start: 01-17-2021 End: 01-17-2021 [facility] OLGA LIDIA Estrella APRN.JOELLEN Work Phone: [facility] Comment on above: ADHD (attention defi cit hyperactivity disorder), inattentive type (Primary Dx); Chronic fatigue Procedures Date Procedure Procedure Detail Performing Clinician Start: 08-31-2022 Urinalysis complete panel - Urine Kalani SURESH Work Phone: Start: 08-31-2022 Urine test visual color cmprsn meths Kalani SURESH Work Phone: Start: 08-31-2022 Urnls dip stick/tabl et reagent auto microscopy Kalani SURESH Work Phone: Start: 08-31-2022 Basic metabolic pane l calcium total Kalani Driss Shorty SURESH Work Phone: Start: 08-31-2022 Ecg routine ecg w/le ast 12 lds trcg only w/o i&r Santi Rojas MD Work Phone: Plan of Treatment Date Care Activity Detail Author Start: 2047 RSV Immunization aged 60 or older (1 - 1-dose 60+ series) RSV Immunization aged 60 or older (1 - 1-dose 60+ series) [facility] Start: 12-03-2037 Zoster Vaccines (1 of 2) Zoster Vaccines (1 of 2) [facility] Start: 01-18-2025 End: 01-18-2025 Patient encounter procedure 01/18/2025 12:00 PM EDT Office Visit [address] [place] [address] Raza Monique MD [address] [place] [address] [facility] Start: 03-27-2024 Influenza vaccination Influenza Vaccine (Season Ended) [facility] Start: 03-27-2023 COVID-19 Vaccine ( season) COVID-19 Vaccine ( season) [facility] Start: 03-27-2022 Influenza vaccination Influenza Vaccine (#1) [facility] Start: 03-27-2021 Influenza vaccination INFLUENZA (Season Ended) [facility] Start: 03-21-2021 DTaP/Tdap/Td Vaccines (2 - Td or Tdap) DTaP/Tdap/Td Vaccines (2 - Td or Tdap) [facility] Start: 12-03-2017 HPV TESTING HPV TESTING [facility] Start: 12-03-2017 Screening for malignant neoplasm of cervix [facility] Start: 12-03-2008 PAP TESTING PAP TESTING [facility] Start: 12-03-2008 Screening for malignant neoplasm of cervix Pap Smear [facility] Start: 12-03-2006 Hepatitis B Vaccines (1 of 3 - 19+ 3-dose series) Hepatitis B Vaccines (1 of 3 - 19+ 3-dose series) [facility] Start: 12-03-2006 Urine microalbumin profile DTAP,TDAP,TD (1 - Tdap) [facility] Start: 12-03-2005 HEPATITIS C SCREENING HEPATITIS C SCREENING [facility] Start: 12-03-2005 Hepatitis C screening Hepatitis C Screening [facility] Start: 12-03-2005 HIV SCREENING HIV SCREENING [facility] Start: 12-03-2000 Varicella vaccination Varicella Vaccines (1 of 2 - 13+ 2-dose series) [facility] Start: 1999 Adult depression screening assessment DEPRESSION SCREENING [facility] Start: 1999 COVID-19 VACCINE (1) COVID-19 VACCINE (1) [facility] Start: 1999 Depression Monitoring Depression Monitoring [facility] Start: 1999 Depresssion Monitoring Depresssion Monitoring [facility] Start: 12-03-1988 MMR Vaccines (1 of 1 - Standard series) MMR Vaccines (1 of 1 - Standard series) [facility] Start: 12-03-1988 Varicella vaccination Varicella Vaccines (1 of 2 - 2-dose childhood series) [facility] Start: 06-05-1988 COVID-19 Vaccine (#1) COVID-19 Vaccine (#1) [facility] Start: 1987 Hepatitis B Vaccines (1 of 3 - 3-dose series) Hepatitis B Vaccines (1 of 3 - 3-dose series) [facility] Start: 1987 HIV screening HIV Screening [facility] Start: 1987 Lipid panel Lipid Panel [facility] Start: 1987 Thyroid stimulating hormone measurement TSH Level [facility] Cytology Cervical or vaginal smear or scraping study Pap Smear Pathology and Cytology Routine Well woman exam with routine gynecological exam Cervical cancer screening 12/30/2023 12:41 PM EDT [facility] Work Phone: [facility] Immunizations Immunization Date Immunization Notes Care Provider Fa cility 08-03-2015 influenza virus vacc ine, unspecified formulation Santi Rojas MD Work Phone: [facility] Payers Date Payer Category Payer Private Health Insurance [employer] Suresh ETNA PPO [id number] 2022-Present [address] [place] [address] Commercial [id number] 2022 Private Health Insurance [id number] 2022 Self-pay [id number] 2022 Unknown [id number] 2011 Unknown GAB BLUE CARD PPO [id number] 2011-Present PPO [id number] Private Health Insurance [employer] SR SUPPLEM ENT INS [id number] Unknown ANTHEM [id number] Unknown [id number] Unknown [id number] Social History Date Type Detail Facility Start: 01-17-2021 Tobacco smoking status ARIS Never smoker [facility] Start: 01-17-2021 [facility] use and exposure [facility] Start: 08-09-2018 End: 01-17-2021 Alcohol intake Current drinker of alcohol (finding) [facility] Start: 06-09-2012 Alcohol Comment Just occasional [facility] Start: 1985 Sex Assigned At Not on file [facility] Start: 10-26-2020 End: 10-26-2020 Tobacco smoking status NHIS Unknown if ever smoked [facility] Start: 1985 Sex Assigned At Female [facility] Start: 08-09-2018 End: 12-30-2023 Alcohol intake [facility] Start: 08-31-2022 End: 12-30-2023 Alcohol Use Disorder Identification Test - Consumption [AUDIT-C] [facility] How often to you hav e a drink containing alcohol? Never [facility] How many standard dr inks containing alcohol do you have on a typical day? Patient does not drink [facility] Start: 09-01-2022 History SDOH Alcohol Frequency 1 [facility] Start: 09-01-2022 History SDOH Alcohol Std Drinks 0 [facility] Start: 08-21-2022 End: 08-31-2022 Exposure to SARS-CoV-2 (event) Not sure [facility] Clinical Notes 02-20-2012 to 12-30-2023 Juju Erazo MA - 12/30/2023 12:00 PM EDTGregdarlyn Monique MD - 12/30/2023 12:00 PM EDTTelephone Encounter - Yelitza Drew Everett - 11/13/2023 2:59 PM EDT Note Date & Type Note Facility 12-30-2023 History of Present illness Narrative [facility] Bailiff was offered to the patient for exam. Patient accepted, medical record specialist in room during exam Leslie Cook Orquidea 12/30/2023 38 y.o. Primary Care Physician: NACHO CAMERON Chief Complaint Patient presents with Annual Exam Well woman- replace Mirena Last pap-5 years ago, +HPV, cryotherapy HPI : Leslie Heard is a 38 y.o. female here for annual exam ___ Gynecologic History: Patient's last menstrual period was 12/28/2023. Pt without complaints. Had mirena placed 5 years ago. Light periods on mirena. OB History Para Term AB Living 0 0 0 0 0 0 SAB IAB Ectopic Multiple Live Births 0 0 0 0 0 Past Medical History: Diagnosis Date Anxiety BMI 36.0-36.9,adult 08/09/2018 Depression EBV infection 2018 Headache HPV (human papilloma virus) anogenital infection Hypothyroidism Past Surgical History: Procedure Laterality Date CERVIX LESION DESTRUCTION 2005 cryo therapy HYSTEROSCOPY 2017 Lost intrauterine device INTRAUTERINE DEVICE INSERTION Removed 2017 Family History Problem Relation Name Age of Onset Thyroid disease Paternal Grandfather hypothyroid Diabetes Paternal Grandfather Breast cancer Paternal Grandmother 70 Thyroid disease Maternal Grandmother Parathyroid Alcohol abuse Maternal Grandfather Liver disease Maternal Grandfather Other ([id number]) Father MVA 31 years old Substance Abuse Mother alcohol No Known Problems Brother No Known Problems Brother Depression Sister Breast cancer Paternal Great-Grandmother great aunt 68 Ovarian cancer Neg Hx Cervical cancer Neg Hx Social History Socioeconomic History Marital status: Single Spouse name: Not on file Number of children: Not on file Years of education: Not on file Highest education level: Not on file Occupational History Not on file Tobacco Use Smoking status: Never Smokeless tobacco: Never Substance and Sexual Activity Alcohol use: Yes Alcohol/week: 0.0 standard drinks of alcohol Drug use: No Sexual activity: Not on file Other Topics Concern Not on file Social History Narrative Not on file Social Determinants of Health Financial Resource Strain: Not on file Food Insecurity: Not on file Transportation Needs: Not on file Physical Activity: Not on file Stress: Not on file Social Connections: Not on file Intimate Partner Violence: Not on file Housing Stability: Not on file MEDICATIONS: Current Outpatient Medications Medication Sig Dispense Refill hydrOXYzine HCl (Atarax) 10 MG tablet Take 10 mg by mouth 3 times daily as needed for anxiety. levonorgestrel (Mirena, 52 MG,) 20 MCG/DAY IUD 1 each by IntraUTERine route Once. levothyroxine (Synthroid, Levoxyl) 200 MCG tablet Take 200 mcg by mouth daily. pantoprazole (ProtoNix) 40 MG EC tablet Take 40 mg by mouth daily. No current facility-administered medications for this visit. ALLERGIES: Allergies as of 12/30/2023 - Reviewed 12/30/2023 Allergen Reaction Noted Sulfa antibiotics Nausea And Vomiting 03/23/2018 REVIEW OF SYSTEMS: CONSTIUTIONAL: No fever, chills or malaise; No weight change or fatigue CV: No Chest Pain with Exertion, Palpitations, Syncope, Edema, Arrhythmia RESPIRATORY: No SOB, Pneumoniae,Cough, BREAST: No breast abnormalities or lumps GI: No Indigestion, Heartburn, Nausea, vomiting, Diarrhea, Constipation,Bloating or Bowel Changes; No Bloody Stools or melena : No Dysuria, Hematuria or Nocturia. No Urinary Incontinence or Vaginal Discharge,vaginal bleeding, or dysparuenia. NEURO: No CVA, Migraines, Epilepsy, Seizure Hx, or Limb Weakness DERM: No Rash, Itching, Hives, Mole Changes or Cancer PSYCH: No Depression, Homicidal thoughts,suicidal thoughts, or anxiety MUSCULOSKELETAL: No Arthralgia, or Arthritis HEME and LYMPH :No Lymphoma, Von Willebrand's, Hemophillia or Bleeding History PHYSICAL EXAM: Vitals: 12/30/23 1159 BP: 124/86 Weight: 104 kg (230 lb) Height: 1.702 m (5' 7) Body mass index is 36.02 kg/m . KINESEOLOGIST EXAM: EXTERNAL GENITALIA: normal female structures VAGINA: normal ruggae, no lesions CERVIX: no lesions, normal appearance. ANUS/PERINEUM: no hemorrhoids, masses or warts noted. GENERAL EXAM BREAST: b/l symmetric without masses or tenderness CONSTITUTIONAL: Well developed, well nourished, well groomed. no acute distress NECK: no thyromegaly, supple. CARDIOVASCULAR: normal rate and rhythm, no edema LUNGS: Normal effort, normal lung sounds ABDOMEN:soft, non-tender, non-distended, no hepatospleenomegaly SKIN: intact, dry NEUROLOGICAL: no gross motor or sensory deficits noted. . MUSCULOSKELETAL: normal gait, no cyanosis. PSYCHIATRIC Normal mood and affect, A&O x3. ASSESSMENT/PLAN: Leslie was seen today for annual exam. Diagnoses and all orders for this visit: Well woman exam with routine gynecological exam (Primary) - Pap Smear Cervical cancer screening - Pap Smear Follow up in about 1 year (around 12/29/2024). IUD stings not seen Had imaging recently that showed IUD Discussed length approved for Discussed repeat imaging - pt declined documented in this encounter [facility] 11-13-2023 Telephone encounter Note Name of Caller: Leslie Heard Contact Reason for Appointment: LM for pt to return call to schedule appt. Pt has Mirena implant that needs removed/replaced. Former Dr Patel pt. Office Name: [facility] Medication Refills need, if any: n/a Medication Name: n/a [facility] 11-13-2023 Miscellaneous Notes Name of Caller: Leslie Heard Contact Reason for Appointment: LM for pt to return call to schedule appt. Pt has Mirena implant that needs removed/replaced. Former Dr Patel pt. Office Name: [facility] Medication Refills need, if any: n/a Medication Name: n/a Appointment Request From: Leslie Heard With Provider: Other - (see comments) Preferred Date Range: From 11/13/2023 To 11/20/2023 Preferred Times: Any Reason: To address the following health maintenance concerns. Cervical Cancer Screening Comments: Past due for my cervical screening and I believe I am past due to having my control removed. I currently have the Mirina implant. documented in this encounter [facility] 11-13-2023 Telephone encounter Note Appointment Request From: Leslie Heard With Provider: Other - (see comments) Preferred Date Range: From 11/13/2023 To 11/20/2023 Preferred Times: Any Reason: To address the following health maintenance concerns. Cervical Cancer Screening Comments: Past due for my cervical screening and I believe I am past due to having my control removed. I currently have the Mirina implant. [facility] 08-31-2022 Emergency department Note Emergency Department Encounter [facility] ED Patient: Leslie Heard : 1985 Date of Evaluation: 08/31/2022 ED Supervising Physician: Santi Rojas MD I independently examined and evaluated Leslie Heard. This will serve as my Supervisory note and shared attestation. I did perform a substantive portion of the visit including all aspects of the Medical Decision Making. I wore appropriate PPE for the entirety of this encounter. In brief, Leslie Heard is a 36 y.o. female that presents to the emergency department with complaint of nausea and vomiting for 1 day. Complains of burning in her chest since the vomiting started. States her child was ill with vomiting yesterday. Denies localized abdominal pain. Denies dysuria. Denies flank pain Focused exam: Awake and alert. Nontoxic. Uncomfortable due to nausea. Lungs clear to auscultation. Heart regular rate and rhythm. Abdomen soft nondistended without focal tenderness rebound or guarding. EKG: Normal sinus rhythm. Rate of 67. Normal axis. No acute appearing ST segment changes. No old EKG available for comparison. Today's EKG read by this examiner. White count is 18. Bicarb slight low at 17. No renal insufficiency. Laboratory studies reviewed by this examiner Brief ED course/MDM: Patient has recurrent nausea vomiting. She is given IV fluids. This may be secondary to gastroenteritis. This may be secondary to cannabis hyperemesis syndrome. Patient does not have any signs of surgical abdomen. Is no peritonitis. All diagnostic, treatment, and disposition decisions were made by myself in conjunction with the FELIX. For all further details of the patient's emergency department visit, please see their documentation. (Comment: Please note this report has been produced using speech recognition software and may contain errors related to that system including errors in grammar, punctuation, and spelling, as well as words and phrases that may be inappropriate. If there are any questions or concerns please feel free to contact the dictating provider for clarification.) Santi Rojas MD Acute Care [facility] Santi Rojas MD 08/31/228 N, V, D emesis x 10 today having chest pain, pt is pale diaphoretic and throwing up in triage. documented in this encounter [facility] 08-31-2022 Emergency department Triage note N, V, D emesis x 10 today having chest pain, pt is pale diaphoretic and throwing up in triage. [facility] 08-31-2022 Physician Emergency department Note Emergency Department Encounter [facility] ED Patient: Leslie Heard : 1985 Date of Evaluation: 08/31/2022 ED Supervising Physician: Snati Rojas MD I independently examined and evaluated Leslie Heard. This will serve as my Supervisory note and shared attestation. I did perform a substantive portion of the visit including all aspects of the Medical Decision Making. I wore appropriate PPE for the entirety of this encounter. In brief, Leslie Heard is a 36 y.o. female that presents to the emergency department with complaint of nausea and vomiting for 1 day. Complains of burning in her chest since the vomiting started. States her child was ill with vomiting yesterday. Denies localized abdominal pain. Denies dysuria. Denies flank pain Focused exam: Awake and alert. Nontoxic. Uncomfortable due to nausea. Lungs clear to auscultation. Heart regular rate and rhythm. Abdomen soft nondistended without focal tenderness rebound or guarding. EKG: Normal sinus rhythm. Rate of 67. Normal axis. No acute appearing ST segment changes. No old EKG available for comparison. Today's EKG read by this examiner. White count is 18. Bicarb slight low at 17. No renal insufficiency. Laboratory studies reviewed by this examiner Brief ED course/MDM: Patient has recurrent nausea vomiting. She is given IV fluids. This may be secondary to gastroenteritis. This may be secondary to cannabis hyperemesis syndrome. Patient does not have any signs of surgical abdomen. Is no peritonitis. All diagnostic, treatment, and disposition decisions were made by myself in conjunction with the FELIX. For all further details of the patient's emergency department visit, please see their documentation. (Comment: Please note this report has been produced using speech recognition software and may contain errors related to that system including errors in grammar, punctuation, and spelling, as well as words and phrases that may be inappropriate. If there are any questions or concerns please feel free to contact the dictating provider for clarification.) Santi Rojas MD [facility] Santi Rojas MD 08/31/222210 [employer] Phone: 03-01-2021 Note HNO ID: [id number] Author: Melinda Estrella APRN.FINAL CANOE INSPECTOR Service: ? Author Type: Physician Type: Progress Notes Filed: 03/01/2021 1:15 PM Note Text: PSYC FOLLOW UP - PSYCHIATRIC PROGRESS NOTE CC: Medication follow up With the patient consent, visit was performed virtually. HPI: Leslie feels the Vyvanse has been helpful but she is still Very tried around 2pm. She states it hard to drive home from work sometimes because she cant stay awake. Dicussed increase vyvanse but she has been getting headaches and is worried they will increase with an increase in medication-will try low dose adderall and follow up in one month. Patient also feels she would like to see someone for therapy regarding possible OCD behaviors Risks and benefits of the medication, including any black box warnings, were discussed with the patient. Interval Progress: Slightly improved PATIENT DATA: Generalized Anxiety Disorder Scale (DEUCE-7) No flowsheet data found.(0-4) minimal anxiety, (5-9) mild anxiety, (10-14) moderate anxiety, (15-21) severe anxiety Patient Health Questionnaire (PHQ-9) No flowsheet data found.(0-4) minimal depression, (5-9) mild depression, (10-14) moderate depression, (15-19) moderately severe depression, (20-27) severe depression PROMIS [facility] No flowsheet data found. Adult ADHD Self-Report Scale - v1.1 (ASRS) Adult ADHD Self-Report Scale - ASRS - v1.1 - Scores 01/17/2021 PART A TOTAL SCORE 19 PART B TOTAL SCORE 28 PAST MEDICAL HISTORY Diagnosis Date - Jessica Benavides infection - Hypothyroidism 07/27/2007 Takes levothyroxine - Persistent headaches No past surgical history on file. Current Outpatient Medications Medication Sig Dispense Refill - lisdexamfetamine (VYVANSE) 40 mg capsule Take 1 capsule by mouth once daily for 30 days. 30 capsule 0 - venlafaxine ER (EFFEXOR XR) 75 mg 24 hr capsule - spironolactone (ALDACTONE) 50 mg tablet Take 50 mg by mouth twice daily. - venlafaxine 37.5 mg tablet Take 37.5 mg by mouth once daily. - PNV NO.28/FERROUS FUMARATE/FA (PNV #28-IRON FUMARATE-FOLIC AC ORAL) Take by mouth. - Cholecalciferol, Vitamin D3, (VITAMIN D-3) 2,000 unit cap Take by mouth once daily. - pyridoxine (VITAMIN B-6) 100 mg tablet Take 100 mg by mouth once daily. - Topiramate (TOPAMAX) 50 mg tablet Take 50 mg by mouth twice daily. - METHYLPREDNISOLONE ACETATE (DEPO-MEDROL INJECTION) by INJECTION(UNSPECIFIED PARENTERAL ROUTES) route. Every three months - Multivitamin capsule Take 1 capsule by mouth once daily. No current facility-administered medications for this visit. ROS: GENERAL: Negative for malaise, significant weight loss and fever. HEENT: No changes in hearing or vision, no nose bleeds or other nasal problems. RESPIRATORY: Negative for cough, wheezing and shortness of breath. CARDIOVASCULAR: Negative for chest pain, leg swelling and palpitations. GI: Negative for abdominal discomfort, blood in stools or black stools. : Negative for dysuria, frequency and incontinence. MUSCULOSKELETAL: Negative for joint pain or swelling, back pain, and muscle pain. SKIN: Negative for lesions, rash, and itching. HEMATOLOGY/LYMPHOLOGY Negative for prolonged bleeding, bruising easily, and swollen nodes. ENDOCRINE: Negative for cold or heat intolerance, polyuria, polydipsia and goiter. NEURO: Negative for headaches, syncope, seizures and paralysis. VITAL SIGNS: There were no vitals filed for this visit. MENTAL STATUS EXAM: CONSTITUTIONAL: Well groomed ORIENTATION: Person, Place, Time and Situation MEMORY: Recent intact CONCENTRATION: Normal MOOD: euthymic AFFECT: Full and appropriate to topic SPEECH : Clear AND distinct LANGUAGE : Normal ASSOCIATIONS: Intact THOUGHT PROCESS : Logical, Coherent and Rational PROGRESSION : There was no evidence of disturbance in thought perception or progression. FUND OF KNOWLEDGE : Appropriate and Adequate SUICIDE: None HOMICIDE: None DATA REVIEWED: Electronic medical record DIAGNOSIS: 1. PRIMARY: ADHD 2. Secondary : None TREATMENT PLAN: 1. Continue Vyvanse 40mg 2. Start Adderall 10mg follow up in a month Follow Up: 4 weeks I spent a total of 30 minutes on the date of the service which included preparing to see the patient, [id number] patient care, completing clinical documentation, obtaining and/or reviewing separately obtained history, counseling and educating the patient/family/caregiver and ordering medications, tests, or procedures. ADD ON PSYCHOTHERAPY CODE : No SIGNATURE: Melinda Estrella APRN.CNP PATIENT NAME: Leslie Heard DATE: March 01, 2021 TIME: 1:10 PM PAGER: DEEP [facility] 02-01-2021 Note HNO ID: [id number] Author: Melinda Estrella APRN.JOELLEN Service: ? Author Type: Physician Type: Progress Notes Filed: 02/01/2021 1:08 PM Note Text: PSYC FOLLOW UP - PSYCHIATRIC PROGRESS NOTE CC: Medication Follow up With the patient consent, visit was performed virtually. HPI: Patient states the medication helped for only a couple hours. States she was on a higher dose when she previously took the medication. Had a headache at the beginning but for the most part no other side effects. Will increase dose and follow up in one month Risks and benefits of the medication, including any black box warnings, were discussed with the patient. Interval Progress: Slightly improved PATIENT DATA: Generalized Anxiety Disorder Scale (DEUCE-7) No flowsheet data found.(0-4) minimal anxiety, (5-9) mild anxiety, (10-14) moderate anxiety, (15-21) severe anxiety Patient Health Questionnaire (PHQ-9) No flowsheet data found.(0-4) minimal depression, (5-9) mild depression, (10-14) moderate depression, (15-19) moderately severe depression, (20-27) severe depression PROMIS [employer] [facility] No flowsheet data found. Adult ADHD Self-Report Scale - v1.1 (ASRS) Adult ADHD Self-Report Scale - ASRS - v1.1 - Scores 01/17/2021 PART A TOTAL SCORE 19 PART B TOTAL SCORE 28 PAST MEDICAL HISTORY Diagnosis Date - Jessica Benavides infection - Hypothyroidism 07/27/2007 Takes levothyroxine - Persistent headaches No past surgical history on file. Current Outpatient Medications Medication Sig Dispense Refill - venlafaxine ER (EFFEXOR XR) 75 mg 24 hr capsule - lisdexamfetamine (VYVANSE) 20 mg capsule Take 1 capsule by mouth daily with breakfast for 15 days. 15 capsule 0 - spironolactone (ALDACTONE) 50 mg tablet Take 50 mg by mouth twice daily. - venlafaxine 37.5 mg tablet Take 37.5 mg by mouth once daily. - PNV NO.28/FERROUS FUMARATE/FA (PNV #28-IRON FUMARATE-FOLIC AC ORAL) Take by mouth. - Cholecalciferol, Vitamin D3, (VITAMIN D-3) 2,000 unit cap Take by mouth once daily. - pyridoxine (VITAMIN B-6) 100 mg tablet Take 100 mg by mouth once daily. - Topiramate (TOPAMAX) 50 mg tablet Take 50 mg by mouth twice daily. - METHYLPREDNISOLONE ACETATE (DEPO-MEDROL INJECTION) by INJECTION(UNSPECIFIED PARENTERAL ROUTES) route. Every three months - Multivitamin capsule Take 1 capsule by mouth once daily. No current facility-administered medications for this visit. ROS: GENERAL: Negative for malaise, significant weight loss and fever. HEENT: No changes in hearing or vision, no nose bleeds or other nasal problems. RESPIRATORY: Negative for cough, wheezing and shortness of breath. CARDIOVASCULAR: Negative for chest pain, leg swelling and palpitations. GI: Negative for abdominal discomfort, blood in stools or black stools. : Negative for dysuria, frequency and incontinence. MUSCULOSKELETAL: Negative for joint pain or swelling, back pain, and muscle pain. SKIN: Negative for lesions, rash, and itching. HEMATOLOGY/LYMPHOLOGY Negative for prolonged bleeding, bruising easily, and swollen nodes. ENDOCRINE: Negative for cold or heat intolerance, polyuria, polydipsia and goiter. NEURO: Negative for headaches, syncope, seizures and paralysis. VITAL SIGNS: There were no vitals filed for this visit. MENTAL STATUS EXAM: CONSTITUTIONAL: Appropriately dressed ORIENTATION: Person, Place, Time and Situation MEMORY: Recent intact CONCENTRATION: Normal MOOD: euthymic AFFECT: Full and appropriate to topic SPEECH : Clear AND distinct LANGUAGE : Normal ASSOCIATIONS: Intact THOUGHT PROCESS : Logical, Coherent and Rational PROGRESSION : There was no evidence of disturbance in thought perception or progression. FUND OF KNOWLEDGE : Appropriate and Adequate SUICIDE: None HOMICIDE: None DATA REVIEWED: Records and Electronic medical record DIAGNOSIS: 1. PRIMARY: ADHD 2. Secondary : Sleep Disorder Fatigue TREATMENT PLAN: 1. Biological Management: increase Vyvanse and follow up in one month MEDICATION CHANGES: - Dosage change: increase Vyvanse 40 mg Daily Follow Up: 4 weeks I spent a total of 30 minutes on the date of the service which included preparing to see the patient, [id number] patient care, completing clinical documentation, obtaining and/or reviewing separately obtained history, counseling and educating the patient/family/caregiver and ordering medications, tests, or procedures. ADD ON PSYCHOTHERAPY CODE : No SIGNATURE: Melinda Estrella APRN.CNP PATIENT NAME: Leslie Heard DATE: February 01, 2021 TIME: 12:52 PM PAGER: DEEP [facility] 01-17-2021 Note HNO ID: [id number] Author: Melinda Estrella APRN.JOELLEN Service: ? Author Type: Physician Type: Progress Notes Filed: 01/17/2021 4:40 PM Note Text: PSYC NEW - PSYCHIATRIC ASSESSMENT Patient was seen for an initial evaluation. With the patient consent, visit was performed virtually. All information is from Patient report except when noted. This evaluation is NOT intended for forensic, disability or child custody purposes. 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 REFERRAL SOURCE: Self CHIEF COMPLAINT: I came for medication management. HPI: Leslie presents today will complaints of inattentiveness, inability to focus as well as fatigue. Patient states she was previously diagnosed with jessica benavides and since then has had fatigue issues. Is seeking medication management, and possible FMLA paperwork Sleep: sleeping too much Interest: good Guilt: none Energy: low Concentration: poor Appetite: good Psychomotor Activity: psychomotor activity was WNL. Suicide: None Phobias: no irrational fears Memory: Good, Poor Anxiety: normal/none Obsessions: none Compulsions: none Ricardo: Denies any symptoms of ricardo PTSD: The patient denies being expose to or witnessing traumatic events. Self Mutilation: Denies PAST MEDICAL HISTORY Diagnosis Date - Jessica Benavides infection - Hypothyroidism 07/27/2007 Takes levothyroxine - Persistent headaches History reviewed. No pertinent surgical history. Current Outpatient Medications Medication Sig Dispense Refill - venlafaxine ER (EFFEXOR XR) 75 mg 24 hr capsule - spironolactone (ALDACTONE) 50 mg tablet Take 50 mg by mouth twice daily. - venlafaxine 37.5 mg tablet Take 37.5 mg by mouth once daily. - PNV NO.28/FERROUS FUMARATE/FA (PNV #28-IRON FUMARATE-FOLIC AC ORAL) Take by mouth. - Cholecalciferol, Vitamin D3, (VITAMIN D-3) 2,000 unit cap Take by mouth once daily. - pyridoxine (VITAMIN B-6) 100 mg tablet Take 100 mg by mouth once daily. - Topiramate (TOPAMAX) 50 mg tablet Take 50 mg by mouth twice daily. - METHYLPREDNISOLONE ACETATE (DEPO-MEDROL INJECTION) by INJECTION(UNSPECIFIED PARENTERAL ROUTES) route. Every three months - Multivitamin capsule Take 1 capsule by mouth once daily. No current facility-administered medications for this visit. VITAL SIGNS: There were no vitals filed for this visit. ROS: All other systems negative. PSYCHIATRIC HISTORY: Prior Diagnosis: ADHD Prior Provider: Dr. Preston Therapist: Yes, but cannot recall Current Stenotype Operator: Deep Last Hospitalization: Denies hospitalization. ECT: NA Previous Discontinued Psychiatric Med Trials: Strattera and Wellbutrin SUBSTANCE USE HISTORY: Nicotine: None Caffeine: None Alcohol: No history of use or dependence Marijuana: No history of use or dependence Cocaine: No history of use or dependence Opiods: No history of use or dependence SPIRITUALITY: Non-practicing [facility]: Leslie Heard is the youngest of 3 siblings. The patient was born and raised in [place]. She completed Some college, College. She described her childhood as nurturing, loving and supportive. Her grandmother received custody of her at a young age. Father when she was young and mother is still present in her life. The patient lives with boyfriend of a couple months. Service: None Legal: Pt. denied any past legal history FAMILY PSYCHIATRIC HISTORY: No family psychiatric or substance abuse history PATIENT DATA: Generalized Anxiety Disorder Scale (DEUCE-7) No flowsheet data found.(0-4) minimal anxiety, (5-9) mild anxiety, (10-14) moderate anxiety, (15-21) severe anxiety Patient Health Questionnaire (PHQ-9) No flowsheet data found.(0-4) minimal depression, (5-9) mild depression, (10-14) moderate depression, (15-19) moderately severe depression, (20-27) severe depression PROMIS Global Health No flowsheet data found. Adult ADHD Self-Report Scale - v1.1 (ASRS) Adult ADHD Self-Report Scale - ASRS - v1.1 - Scores 01/17/2021 PART A TOTAL SCORE 19 PART B TOTAL SCORE 28 MENTAL STATUS EXAMINATION: Appearance: Well dressed, well groomed Behavior: Behaves appropriately during the encounter Social relatedness: Euthymic Speech/Language: The patient demonstrates appropriate tone, prosody, moo, phonetics, and syntax Mood: euthymic Affect: Full and appropriate to topic Orientation: Person, Place, Time and Situation Associations: Intact and linear Hallucinations: None Delusions: None Suicidal Ideation: No suicidal ideation, intent or plan. Homicidal Ideation: No homicidal ideation, intent or plan. Insight: Appropriate Judgment: Appropriate IMPRESSION: Possible attention deficit and fatigue DIAGNOSIS: PRIMARY: PROVISIONAL DIAGNOSIS: ADHD SECONDARY: Sleep Disorder Fatigue PLAN: 1. Biological Management: will try Vyvanse as patient (more content not included)... [facility] 02-20-2012 History of Past i llness Narrative Problem Noted Date Resolved Date Hypothyroidism 02/20/2012 08/25/2012 documented as of this encounter (statuses as of 01/17/2021) [facility] ADHD (attention deficit hyperactivity disorder), inattentive type- Primary Attention deficit disorder without mention of hyperactivity Chronic fatigue Other malaise and fatigue [facility] Diagnosis Onset Date Resolution Status Wellness examination acute [facility] Work Phone: Evaluation note* Diagnosis Onset Date Resolution Status Depression acute Hypothyroid acute Sinusitis, acute maxillary a cute GERD (gastroesophageal reflux disease) acute Hypothyroid acute Pharyngitis acute Sinusitis, acute maxillary a cute [facility] Work Phone: Evaluation note* Diagnosis Well woman exam with routine gynecological exam- Primary Routine gynecological examination Cervical cancer screening Screening for malignant neoplasm of the cervix [facility] Diagnosis Nausea and vomiting, unspecified vomiting type- Primary Diarrhea, unspecified type [facility]* Attachments The following attachments cannot be sent through Care Everywhere. * Nausea and Vomiting, Adult ED ([place]) * Diarrhea, [facility] for Referral Status Reason Specialty Diagnoses / Procedures Re ferred By Contact Referred To Contact Authorized Diagnoses ADHD (attention deficit hyperactivity disorder), inattentive type Melinda Estrella, PASTING INSPECTOR.FINAL CANOE INSPECTOR [address] [place] [address] Summary Purpose Family History Relationship Condition Age at Onset Recorded Date/T [place] grandmother Asthma Unknown Malignant neoplasm of breast Unknown Chronic obstructive pulmonary disease Unk nown Cardiac disease Unknown Hypertension Unknown Kidney disorder Unknown Disorder of thyroid Unknown grandfather Malignant neoplasm Unknown Diabetes mellitus Unknown mother Disorder of thyroid Unknown Advance Directives No Advanced Directives Records FoundNo Advanced Directives Records FoundNo Advanced Directives Records Found Chief Complaint and Reason for Visit Chief Complaint Annual wellness PE e xam Reason for Visit Wellness examination Chief Complaint Sinus infection Sore throat Reason for Visit Depression Hypothyroid Sinusitis, acute maxillary GERD (gastroesophageal reflux disease) Hypothyroid Pharyngitis Sinusitis, acute maxillary Additional Source Comments Source Comments (unrecognize d section and content) In the event this informatio n is protected by the Federal Confidentiality of Alcohol and Drug Abuse Patient Records regulations: The Federal rules restrict any use of the information to criminally investigate or prosecute any alcohol or drug abuse patient.[facility] Reason for Visit (unrecogniz ed section and content) Reason Comments ADHD - Inattentive Fatigue Reason Onset Date Comments Appointment 11/13/2023 Appointment Request 11/13/2023 Reason Comments Annual Exam Well woman- replace MirenaLast pap-5 years ago, +HPV, cryotherapy Reason Comments Chest Pain Vomiting INFORMATION SOURCE (unrecogn ized section and content) DATE CREATED AUTHOR 08/28/2021 [facility] DATE CREATED AUTHOR AUTHOR'S ORGANIZ ATION 09/19/2022 [facility] DATE CREATED AUTHOR AUTHOR'S ORGANIZ ATION 01/15/2024 [facility] Goals (unrecognized section and content) Goals may be documented in a n alternate sectionGoals may be documented in an alternate section Care Teams (unrecognized sec tion and content) Team Status: Active Member Role Status Dates Nacho Cameron CLOTH FINISHER, CLOTH FINISHER-C Family Provider Active Nacho Cameron CLOTH FINISHER, CLOTH FINISHER-C Primary Care Provider Active Team Status: Inactive Member Role Status Dates Nacho Cameron CLOTH FINISHER, CLOTH FINISHER-C Primary Care Pr ovider, Attending Provider, Referring Provider Active Team Status: Inactive Member Role Status Dates Nacho Cameron CLOTH FINISHER, CLOTH FINISHER-C Primary Care Provider, Attend ing Provider Active Flavoring Maker Relationship Specialty Start Date End Date Nacho Cameron [address] [place], [place] [id number] PCP - General Nurse Practitioner 07/02/22 Flavoring Maker Relationship Specialty Start Date End Date Nacho Cameron [address] [place], [place] [id number] PCP - General Nurse Practitioner 07/02/22 Flavoring Maker Relationship Specialty Start Date End Date Nacho Cameron [address] [place], [place] [id number] PCP - General Nurse Practitioner 07/02/22 Scheduled Active and Recently Administ ered Medications (unrecognized section and content) Medication Order 08/29/2022 08/30/2022 08/31/2022 haloperidol lactate (Haldol) injection 2.5 mg (COMPLETED) 2.5 mg, IntraMUSCular, Once, On 08/31/22 at 2205, For 1 dose, IM route of administration preferred. Because of the risk of TdP and QT prolongation, ECG monitoring is recommended if haloperidol is given IV 2228 (Given - Provid er: Rita Harper RN) ondansetron (Zofran) injection 4 mg (COMPLETED) 4 mg, IntraVENous, Once, On 08/31/22 at 2024, For 1 dose 2034 (Given - Provid er: Rita Harper RN) pantoprazole (ProtoNix) injection 40 mg (COMPLETED) 40 mg, IntraVENous, Administer over 2 Minutes, Once, On 08/31/22 at 2314, For 1 dose, Give only if unable to tolerate po. 2323 (Given - Provid er: Rita Harper RN) sodium chloride 0.9 % bolus 1,000 mL (COMPLETED) 1,000 mL, IntraVENous, at 1,000 mL/hr, Administer over 1 Hours, Once, On 08/31/22 at 2114, For 1 dose 2114 (New Bag - Prov ider: Rita Harper RN)2322 (Stopped - Provider: Rita Harper RN) FOR RECORDS PERTAINING TO PATIENTS WHO ARE OR HAVE BEEN ENROLLED IN A CHEMICAL DEPENDENCY/SUBSTANCEABUSE PROGRAM, SOME INFORMATION MAY BE OMITTED. This clinical summary was aggregated from multiple sources. Caution should be exercised in using it in the provision of clinical care. This summary normalizes information from multiple sources, and as a consequence, information in this document may materially change the coding, format and clinical context of patient data. In addition, data may be omitted in some cases. CLINICAL DECISIONS SHOULD BE BASED ON THE PRIMARY CLINICAL RECORDS. [employer] provides no warranty or guarantee of the accuracy or completeness of information in this document.
[2025-01-17 02:42] LABS: Absolute Lymphocyte Count 4.34 X10^3/uL (0.83-4.51); Absolute Neutrophil Count 8.8 X10^3/uL (2.0-7.7); Basophil# 0.08 X10^3/uL; Basophil% 0.6 % (0-1); Eosinophil# 0.28 X10^3/uL; Eosinophils% 1.9 % (0-5); Hematocrit 44.8 % (37-47); Hemoglobin 14.7 g/dL (12.0-15.0); Lymphocyte # 4.34 X10^3/ul (0.83-4.51); Lymphocyte % 30.2 % (19-41); Mean Corp Hgb Conc 32.8 g/dL (32-36); Mean Corpuscular Hgb 28.4 pg (27.0-32.0); Mean Corpuscular Volume 86.5 fL (81-99); Mean Platelet Vol. 10.4 fl (6.2-12.0); Monocyte# 0.78 X10^3/uL; Monocyte% 5.4 % (0-10); NRBC Flagged by Analyzer 0 % (0-5); Neutrophil % 61.3 % (47-70); POSITIVE MORPHOLOGY YES; Platelet Count 345 K/mm3 (150-450); RBC Distribution Width CV 12.7 % (11.6-14.6); RBC Distribution Width SD 40.1 fl (35.1-43.9); Red Blood Count 5.18 M/mm3 (4.2-5.4); White Blood Count 14.4 K/mm3 (4.4-11.0)
[2025-01-17 02:54] LABS: Differential Indicated SCAN CRITERIA MET
[2025-01-17 03:16] LABS: ALB/GLOB Ratio 1.4 RATIO (0.9-2.4); AST(SGOT) 28 U/L (<=31); Alanine Aminotransfer ALT/SGPT 29 U/L (<=34); Albumin, Serum 4.5 g/dL (3.5-5.0); Alkaline Phosphatase 79 U/L (35-104); Anion Gap 14 (5-15); BUN 10 mg/dL (4-19); Calcium,Total 9.9 mg/dL (7.6-11.0); Carbon Dioxide 23.2 mmol/L (21.0-32.0); Chloride 98 mmol/L (98-108); Creatinine, Serum 0.91 mg/dL (0.70-1.20); EST Glomerular Filtration Rate 84 (>60); Globulin 3.2 g/dL (2.2-4.2); Glucose 89 mg/dL (70-99); Potassium 4.4 mmol/L (3.3-5.1); Protein, Total 7.7 g/dL (5.9-8.4); Sodium Level 135 mmol/L (133-145)
[2025-01-17 04:05] LABS: Differential Comment SCANNED
[2025-01-17 04:46] LABS: Cholesterol 222 mg/dL (<=200); High Density Lipoprotein 41 mg/dL; Low Density Lipoprotein Calc. 122 mg/dL; Triglycerides 296 mg/dL; Very Low Density Lipoprotein 59 mg/dL (5-40)
== END | disposition home or self-care (01) ==
PROVIDERS: PCP Nurse Practitioner; Referring Provider Nurse Practitioner; Visit Provider Nurse Practitioner
DX: E03.9 Hypothyroidism, unspecified (principal); L08.9 Local infection of the skin and subcutaneous tissue, unspecified; B95.8 Unspecified staphylococcus as the cause of diseases classified elsewhere; L29.9 Pruritus, unspecified
CPT/HCPCS: 80053; 80061; 84443; 85025